=== PATIENT | male | born 1950 | race Caucasian/White ===

== ENCOUNTER 2019-12-14 11:12 | Inpatient (IN) ==
--- NOTE | 2019-12-14 11:28 | Emergency Department Note ---
ED Disposition Clinical Impression: Small bowel obstruction, Intractable nausea and vomiting, Medically noncompliant, Dehydration Abdominal pain Qualifiers: Abdominal location: lower abdomen, unspecified Qualified Code(s): R10.30 - Lower abdominal pain, unspecified Hyperglycemia due to type 2 diabetes mellitus Qualifiers: Diabetes mellitus shelter insulin use: without shelter use Qualified Code(s ): E11.65 - Type 2 diabetes mellitus with hyperglycemia Disposition: Admitted As Inpatient Condition on Discharge: Fair Time of Disposition: 13:12 - Critical Care Critical Care Time: Yes Attestation: On , the high probability of a clinically significant, sudden or life threatening deterioration of the following system(s) required my full and direct attention, intervention and personal management. The time I documented below is in addition to time spent performing reported procedures but includes the following listed in this critical care notation. Total Critical Care Time: 30 Vital system(s) involved:: Metabolic Failure My critical care processes included: Assessment & monitoring of V/S, Initial and Re-exams, Data Review/Interpretation, Coordinating Care, Medication Orders and management, Documentation Medical Decision Making - [place] Inquiry Pt receiving controlled substance: No Vital Signs: 12/14/19 11:12 12/14/19 11:36 12/14/19 12:12 Temperature 98.0 F Temperature Source Oral Pulse Rate [Right Radial] 77 72 74 Respiratory Rate 17 16 15 Blood Pressure [Right Arm] 159/110 H 107/55 L 156/90 H Blood Pressure Mean [Right Arm] 126 72 112 Blood Pressure Source [Right Arm] Automatic Cuff Blood Pressure Position [Right Arm] Sitting Sitting 02 Sat by Pulse Oximetry 97 96 96 Oxygen Delivery Method Room Air Room Air Room Air - Lab Data Lab results reviewed: Yes: I reviewed the patient's lab results. Lab Results 12/14/19 11:10: WBC 19.7 H, RBC 5.83, Hgb 17.7, Hct 52.4 H, MCV 89.9, MCH 30.4, MCHC 33.8, RDW 12.6, Plt Count 312, MPV 8.9, Neut % (Auto) 92.3 H, Lymph % (Auto) 4.6 L, [place] % (Auto) 2.9, Eos % (Auto) 0.0 L, Baso % (Auto) 0.2, Neut # (Auto) 18.2 H, Lymph # (Auto) 0.9, [place] # (Auto) 0.6, Eos # (Auto) 0.0, Baso # (Auto) 0.0, Total Counted 100, Neutrophils % (Manual) 89 H, Lymphocytes % (Manual) 6 L, Monocytes % (Manual) 5, Platelet Estimate Normal, RBC Morphology Normal 12/14/19 11:10: Sodium 135 L, Potassium 4.4, Chloride 88 L, Carbon Dioxide 31 H, Anion Gap 20.4 H, BUN 16, Creatinine 0.80, Estimated Creat Clear 84, Estimated GFR 96, Est GFR ( Amer) 116, Glucose 419 H*, Calcium 10.9 H, Total Bilirubin 0.7, AST 26, ALT 23, Alkaline Phosphatase 106, Total Protein 8.7 H, A lbumin 5.1 H, Globulin 3.6 H, Albumin/Globulin Ratio 1.4, Amylase 33, Lipase 28, Acetone Level None detected 12/14/19 11:50: Lactate 1.9 12/14/19 11:50: Influenza Type A Ag Negative, Influenza Type B Ag Negative 12/14/19 11:51: Specimen Source L. radial, O2 % Room air, ABG pH 7.40, ABG pCO2 36.6, ABG pO2 76.3 L, ABG HCO3 22.0, ABG Total CO2 23.1, ABG O2 Saturation 95, ABG Base Excess -2.9 L, Jim Test Acceptable 12/14/19 12:35: Urine Color Yellow, Urine Appearance Clear, Urine pH 6.0, Ur Specific [place] 1.010, Urine Protein Negative, Urine Glucose (UA) 3+, Urine Ketones 1+, Urine Blood Negative, Urine Nitrate Negative, Urine Bilirubin Negative, Urine Urobilinogen 0.2, Ur Leukocyte Esterase Negative, Urine RBC Occasional, Urine WBC 5-10, Ur Squamous Epith Cells 5-10, Urine Bacteria Trace 12/14/19 13:06: POC Glucose 276 H Result diagrams: 12/14/19 11:10 12/14/19 11:10 Orders (Tests/Meds): ED MEDICATIONS Discontinued Medications Generic Name Dose Route Start Last Admin Trade Name Freq PRN Reason Stop Dose Admin Sodium Chloride 1,000 mls @ 999 mls/hr 12/14/19 11:30 12/14/19 11:54 Sod Chlor 0.9% 1000ml Bag IV 12/14/19 12:30 999 mls/hr .Q1H1M FELISA Administration Ampicillin Sodium/Sulbactam 100 mls @ 200 mls/hr 12/14/19 11:45 12/14/19 11:54 Sodium 3 gm/ Sodium Chloride IV 12/14/19 11:46 200 mls/hr ONCE ONE Administration Protocol Insulin Human Regular 10 unit 12/14/19 11:54 12/14/19 11:56 Humulin R Insulin 100 Units/Ml 10ml Vial IVP 12/14/19 11:55 10 unit ONCE ONE Administration Ioversol 75 ml 12/14/19 12:10 12/14/19 12:11 Rad-Optiray 350 100ml Vial IV 12/14/19 12:11 75 ml ONCE ONE Administration Protocol Morphine Sulfate 4 mg 12/14/19 11:31 12/14/19 11:37 Morphine 4mg/Ml Syringe IV 12/14/19 11:32 4 mg ONCE ONE Administration Morphine Sulfate 4 mg 12/14/19 13:18 12/14/19 13:19 Morphine 4mg/Ml Syringe IV 12/14/19 13:19 4 mg ONCE ONE Administration Ondansetron HCl 4 mg 12/14/19 11:30 12/14/19 11:37 Zofran 4mg/2ml Vial IV 12/14/19 11:31 4 mg ONCE ONE Administration Sodium Chloride 10 ml 12/14/19 12:10 12/14/19 12:11 Rad-Saline Flush 10ml Syringe IV 12/14/19 12:11 10 ml ONCE ONE Administration ORDERS Category Date Time Status Blood Culture Stat Micro 12/14/19 11:50 Received - CT Data CT Scan: Abdomen Time Received: 13:[address] Reviewed: Yes: I discussed the CT results w/the radiologist Findings Narrative: Discussed the CT scan finding with the radiologist, Dr. Mickey Nuñez, and he advised that the patient does have small bowel obstruction moderate type with small bowel diameter of about 3 cm. The transition point is at right lower quadrant. His prostate is enlarged. He does have few hepatic cysts. CT ABDOMEN PELVIS W CON CLINICAL INDICATION: abd pain, vomiting Lower abdominal pain with nausea and vomiting COMPARISON: No exams were available for comparison TECHNIQUE: IV Contrast: 75ML OPTIRAY 350 Oral Contrast none Axial images obtained with sagittal and coronal reformats. All CT scans at the facility use one or more dose reduction, viz: automated exposure control, ma/kV adjustment per patient size (including targeted exams where dose is matched to indication, i.e. head), or iterative reconstruction technique. FINDINGS: LOWER THORAX: There are dependent changes in the lung bases. ABDOMEN & PELVIS: There are several hypodense lesions of the liver the 2 largest in the hepatic dome 1 on the right and 1 on the left each measuring approximately 15 mm consistent with hepatic cysts. There is a gallstone present. The spleen, adrenal glands, and pancreas have an unremarkable appearance. Nonobstructing 3 mm stone is present in the mid polar region of the left kidney. There is a small cortical cyst involving the upper pole and lower pole of the right kidney. No hydronephrosis. No ureteral calculi. There is moderate amount of retained food products and fluid and/or secretions within the stomach There are distended small bowel loops with air-fluid levels with a transition point in the right lower quadrant consistent with small bowel obstruction. Small bowel loops are up to 3 cm in with. No free air is evident. There has been a prior appendectomy with clips at the cecal region. There is diverticulosis of the descending colon and sigmoid colon but no evidence of diverticulitis. There are small bilateral inguinal hernias which contain fat. There is some thickening of the right inguinal ring which could be post surgical in nature. Please correlate clinical findings. The prostate is enlarged at 5.6 cm with some central coarse calcification. IMPRESSION: 1. Moderate grade small bowel obstruction with transition point in the right lower quadrant at the mid to distal ileal region 2. Nonobstructing left nephrolithiasis. 3. Colonic diverticulosis 4. Other nonacute findings as described above. Dictated by: Jim Nuñez MD 12/14/2019 12:56 Electronically signed by Jim Nuñez MD in [place] 12/14/2019 12:56 - Physician Consults Physician Consulted: Dr. Guerra Time: 13:02 Reason -: Admission, Pt condition Comment/Response: Discussed with Dr. Guerra, the surgical surgery on-call regarding the patient and he advised to get the patient admitted to the on-call medical attending. He wants us to get the patient an NG tube for intermittent wall suctioning and hydrate the patient with IV fluids. He will follow-up with the patient today. Additional Consult: Dr. Mendez Time: 13:05 Reason -: Admission, Pt condition Comment/Response: Discussed with Dr. Mendez regarding the patient and plan to get the patient admitted to the floor under his service. - Reevaluation(s) Time: 12:00 Reevaluation #1: Patient has been stable throughout the course of stay in the emergency department. Time: 13:05 Reevaluation #2: Patient has been stable throughout the course of stay in the emergency department. Discussed the lab findings and the CT scan finding with the patient. Planned to admit the patient to the floor under the medicine service. Nausea/Vomiting/Diarrhea HPI - General Chief complaint: Nausea/Vomiting/Diarrhea Stated complaint: vomiting Time Seen by Provider: 12/14/19 11:19 Mode of Arrival: EMS Limitations: No Limitations Description of Symptoms (Recalled from ER Triage Doc. by RN): pt presents to ed with co vomiting since 629 this morning. pt states his stomach is "sore" - History of Present Illness HPI Narrative: 69-year-old male was brought in by the EMS for having abdominal pain and discomfort along with nausea and vomiting since early this morning. He states he started getting sick since about 6 AM this morning he has vomited multiple times since then. Denies having any blood in the vomitus. Denies having any fever or chills. He states she hurts on the lower part of the abdomen including both the lower quadrants and the suprapubic area. The pain is 9 out of 10. It is sharp in nature. There is no radiation of the pain. Pain is worse with movement and palpation of the abdomen. He has history of appendectomy done in the past. Also has history of hernia in the past. Has history of hernia surgery done. Patient denies having been in contact with anybody with coronavirus infection or recent traveling to outside countries affected with coronavirus. MD complaint: nausea, vomiting, abdominal pain Onset (ago): hour(s) (5) Description of Vomiting: food contents, watery, bilious Associated Abdominal Pain: Yes Location of pain: LLQ, RLQ, other (Suprapubic pain) Severity: severe Severity scale (1-10): 9 Quality: sharp Consistency: colicky Relieving factors: none Exacerbating factors: none - Related Data Home Medications Medication Instructions Recorded Confirmed No Known Home Medications 12/14/19 12/14/19 Allergies Allergy/AdvReac Type Severity Reaction Status Date / Time No Known Allergies Allergy Verified 12/14/19 11:16 [facility] History - Hepatitis A Screen Drug use history?: No High risk sexual behaviors?: No History of sexually transmitted infection?: No Currently employed?: No Childcare worker?: No Do you have indoor plumbing?: Yes Do you have electricity?: Yes Attestation statement:: This patient has been screened for Hepatitis A risk factors. I have reviewed the patient's past medical history: Yes Medical History: Reports:: Diabetes Mellitus Type 2 Denies:: Diabetes Mellitus Type 1 - Social History Smoking Status: Former smoker Alcohol Intake: never Occupational Status: employed ROS Obtained: Yes All systems reviewed & no additional complaints Physical Exam - General General appearance: alert, in no apparent distress, lethargic, other (Patient is constantly retching and having mucus vomitus in small amounts. No blood in the vomitus) - Head Head exam: atraumatic, normocephalic, normal inspection - Eye Eye exam: Present: normal appearance, PERRL, EOMI - ENT ENT exam: Present: normal exam, normal oropharynx, mucous membranes moist, normal external ear exam - Neck Neck exam: Present: normal inspection, full ROM, trachea midline - Chest Chest inspection: Present: normal inspection, symmetric chest wall rise. Absent: tenderness - Respiratory Respiratory exam: Present: normal lung sounds bilaterally. Absent: respiratory distress - Cardiovascular Cardiovascular exam: Present: regular rate, normal rhythm. Absent: JVD - Abdominal Exam Abdominal exam: Present: soft, tenderness (Severe tenderness on the lower part of the abdomen.), guarding, rebound (Rebound tenderness positive on lower part of the abdomen.), normal bowel sounds - Extremities Exam Extremities exam: Present: normal inspection, full ROM, normal capillary refill. Absent: calf tenderness - Back Exam Back exam: Present: normal inspection, full ROM. Absent: tenderness - Neurological Exam Neurological exam: Present: alert, oriented X3, CN II-XII intact - Psychiatric Psychiatric exam: Present: normal affect, normal mood
[2019-12-14 11:34] LABS: Basophils % 0.2 % (0.1-2.0); Hematocrit 52.4 % (42.0-52.0); Hemoglobin 17.7 g/dL (14.1-18.0); Lymphocytes # 0.9 K/mm3 (0.7-4.5); Lymphocytes % 4.6 % (10-50); Mean Corpuscular HGB Conc 33.8 g/dL (31.8-35.4); Mean Corpuscular Volume 89.9 fl (80-94); Mean Platelet Volume 8.9 fl (7.4-10.4); Monocytes # 0.6 K/mm3 (0.1-1.0); Monocytes % 2.9 % (1.7-9.3); Neutrophils # 18.2 K/mm3 (1.8-7.8); Neutrophils % 92.3 % (37.0-80.0); Platelet Count 312 K/mm3 (142-424); Red Blood Count 5.83 M/mm3 (4.60-6.20); Red Cell Distribution Width 12.6 % (11.5-17.5); White Blood Count 19.7 K/mm3 (4.8-10.8)
[2019-12-14 11:44] LABS: Chloride 88 mmol/L (98-107); Sodium 135 mmol/L (136-145)
[2019-12-14 11:47] LABS: Alanine Aminotransferase 23 U/L (12-78); Alkaline Phosphatase 106 U/L (38-126); Amylase 33 U/L (30-110); Anion Gap 20.4 mEq/L (5-15); Aspartate Amino Transferase 26 U/L (17-59); Bilirubin,Total 0.7 mg/dl (0.2-1.3); Blood Urea Nitrogen 16 mg/dl (9-20); Calcium 10.9 mg/dl (8.4-10.2); Carbon Dioxide 31 mmol/L (22.0-30.0)
[2019-12-14 11:48] LABS: Albumin Level 5.1 g/dl (3.5-5.0); Albumin/Globulin Ratio 1.4 (1.1-1.8); Globulin 3.6 g/dL (1.3-3.2); Total Protein,Serum 8.7 g/dl (6.3-8.2)
[2019-12-14 11:50] LABS: Acetone, Serum (Rapid) None Detected (None Detect); Glucose 419 mg/dl (74-100)
[2019-12-14 11:57] LABS: Lymphocytes % 6 % (10-50); Monocytes % 5 % (2-9); Neutrophils % 89 % (42-76); Total Cells Counted 100
[2019-12-14 11:58] LABS: RBC Morphology Normal
[2019-12-14 12:32] LABS: ABG Base Excess -2.9 mmol/L (-2.4-2.3); ABG Oxygen Saturation 95 % (90-100); ABG PCO2 36.6 mmhg (35.0-45.0); ABG PO2 76.3 mmhg (80-100); ABG TCO2 23.1 mmhg (23-27)
[2019-12-14 12:33] LABS: Oxygen ROOM AIR %
[2019-12-14 12:34] LABS: Allen's Test ACCEPTABLE
[2019-12-14 12:41] LABS: Microscopic, Urine URINE MICROSCOPIC (MICROSCOPIC)
[2019-12-14 12:49] LABS: Appearance,Urine CLEAR (Clear); Bilirubin,Urine Negative (Negative); Blood, Urine Negative (Negative); Color,Urine YELLOW (Yellow); Glucose,Urine (UA) 3+ (Negative); Ketones,Urine 1+ (Negative); Leukocyte Esterase,Urine Negative (Negative); Protein,Urine Negative (Negative); Urobilinogen,Urine 0.2 EU/dl (0.2)
[2019-12-14 12:59] LABS: Bacteria,Urine Trace /lpf; RBC,Urine Occasional #/hpf (0-3)
--- NOTE | 2019-12-14 13:41 | Pharmacy Consult Notes ---
[facility] Pharmacy VTE Monitoring - Patient Demographics Admission date: 12/14/19 Report Date: 12/14/19 Time: 13:41 Allergies/Adverse Reactions: Patient Allergies No Known Allergies Allergy (Verified 12/14/19 11:16) Height: 1.8 m Weight: 83.915 kg Patient Problems: Current Active Problems Abdominal pain (Acute) Small bowel obstruction (Acute) Intractable nausea and vomiting (Acute) Hyperglycemia due to type 2 diabetes mellitus (Acute) Medically noncompliant (Acute) Dehydration (Acute) - VTE Risk Labs: VTE Related Lab Results Hgb 17.7 g/dL (14.1-18.0) 12/14/19 11:10 Hct 52.4 % (42.0-52.0) H 12/14/19 11:10 Plt Count 312 K/mm3 (142-424) 12/14/19 11:10 BUN 16 mg/dl (9-20) 12/14/19 11:10 Creatinine 0.80 mg/dl (0.66-1.25) 12/14/19 11:10 Estimated Creat Clear 84 mL/min (50-200) 12/14/19 11:10 - Prophylaxis VTE Prophylaxis Ordered?: Yes Types of VTE Prophylaxis: TEDS Knee High Location of Applied Device: Bilateral Lower Extremeties - VTE Diagnosis Confirmed Treatment or plan recommended: Continue Current Treatment
--- NOTE | 2019-12-14 14:15 | Consult Report ---
*Admission Date: 12/14/19 *Reason for consult:: Bowel obstruction *History of present illness: Patient is a 69-year-old white male. He recently moved to [place] from [facility]. He has no regular physician but reportedly has a diagnosis of diabetes which has not been treated. He had undergone open appendectomy he states approximately 8 or 10 years ago. He was in his usual state of health until this morning at which time he developed bilateral lower quadrant abdominal pain and nausea and vomiting. He has never had previous similar symptoms. He presented to the emergency department here at [facility] where he was seen and evaluated. He was found to have a blood glucose of 418. He had a mild leukocytosis of 19,000. He had CT scan performed with intravenous contrast which reveals findings of mild to moderate small bowel distention filled with fluid measuring up to approximately 3 cm with possible transition point in the right lower quadrant. Patient does state that he had a bowel movement this morning. Review of Systems - Review of Systems Review of systems:: pertinent systems reviewed and negative unless documented below [facility] History Medical History: Reports:: Diabetes Mellitus Type 2 Denies:: Diabetes Mellitus Type 1 *Have you ever received a pneumonia vaccine?: No *Have you received a flu vaccine this season?: No - *Social History Smoking Status: Former smoker Alcohol Intake: never *Occupational Status:: employed *Travel in the last 8 weeks: None Family Hx:: No significant family history Meds Home Medications Medication Instructions Recorded Confirmed Type No Known Home Medications 12/14/19 12/14/19 History Allergies Allergy/AdvReac Type Severity Reaction Status Date / Time No Known Allergies Allergy Verified 12/14/19 11:16 Exam Vital signs and Labs for Last 24 Hours: Temp Pulse Resp BP Pulse Ox 98.1 F 71 15 154/89 H 96 12/14/19 13:55 12/14/19 13:55 12/14/19 13:55 12/14/19 13:55 12/14/19 13:30 Laboratory Results - last 24 hr 12/14/19 11:10: WBC 19.7 H, RBC 5.83, Hgb 17.7, Hct 52.4 H, MCV 89.9, MCH 30.4, MCHC 33.8, RDW 12.6, Plt Count 312, MPV 8.9, Neut % (Auto) 92.3 H, Lymph % (Auto) 4.6 L, [place] % (Auto) 2.9, Eos % (Auto) 0.0 L, Baso % (Auto) 0.2, Neut # (Auto) 18.2 H, Lymph # (Auto) 0.9, [place] # (Auto) 0.6, Eos # (Auto) 0.0, Baso # (Auto) 0.0, Total Counted 100, Neutrophils % (Manual) 89 H, Lymphocytes % (Manual) 6 L, Monocytes % (Manual) 5, Platelet Estimate Normal, RBC Morphology Normal 12/14/19 11:10: Sodium 135 L, Potassium 4.4, Chloride 88 L, Carbon Dioxide 31 H, Anion Gap 20.4 H, BUN 16, Creatinine 0.80, Estimated Creat Clear 84, Estimated GFR 96, Est GFR ( Amer) 116, Glucose 419 H*, Calcium 10.9 H, Total Bilir ubin 0.7, AST 26, ALT 23, Alkaline Phosphatase 106, Total Protein 8.7 H, Albumin 5.1 H, Globulin 3.6 H, Albumin/Globulin Ratio 1.4, Amylase 33, Lipase 28, Acetone Level None detected 12/14/19 11:50: Lactate 1.9 12/14/19 11:50: Influenza Type A Ag Negative, Influenza Type B Ag Negative 12/14/19 11:51: Specimen Source L. radial, O2 % Room air, ABG pH 7.40, ABG pCO2 36.6, ABG pO2 76.3 L, ABG HCO3 22.0, ABG Total CO2 23.1, ABG O2 Saturation 95, ABG Base Excess -2.9 L, Jim Test Acceptable 12/14/19 12:35: Urine Color Yellow, Urine Appearance Clear, Urine pH 6.0, Ur Specific [place] 1.010, Urine Protein Negative, Urine Glucose (UA) 3+, Urine Ketones 1+, Urine Blood Negative, Urine Nitrate Negative, Urine Bilirubin Negative, Urine Urobilinogen 0.2, Ur Leukocyte Esterase Negative, Urine RBC Occasional, Urine WBC 5-10, Ur Squamous Epith Cells 5-10, Urine Bacteria Trace 12/14/19 13:06: POC Glucose 276 H I & O for Last 24 hours: Intake & Output 12/12/19 12/13/19 12/14/19 12/15/19 11:59 11:59 11:59 11:59 Weight 185 lb - *Routine HEENT Exam Head: Present: normocephalic Eye: Present: EOMI, PERRL ENT: Present: mucous membranes moist - *Routine Neck Exam Present: supple. Absent: lymphadenopathy - *Routine Respiratory Exam Present: CTA bilaterally - *Routine Cardiovascular Exam Present: RRR - *Routine Abdominal Exam Present: soft, normoactive bowel sounds, tenderness Comments: On examination his abdomen is slightly distended but soft. He does have some tenderness in the left upper quadrant with voluntary guarding without rebound. Mild tenderness in the bilateral lower quadrants. Large right lower quadrant scar. - *Routine Extremities Exam Absent: cyanosis, clubbing, edema - *Routine Skin Exam Present: warm. Absent: rash - *Routine Neurological Exam Present: alert, oriented X3 Results - Labs 12/14/19 11:10 12/14/19 11:10 Laboratory Results - last 24 hr 12/14/19 11:10: WBC 19.7 H, RBC 5.83, Hgb 17.7, Hct 52.4 H, MCV 89.9, MCH 30.4, MCHC 33.8, RDW 12.6, Plt Count 312, MPV 8.9, Neut % (Auto) 92.3 H, Lymph % (Auto) 4.6 L, [place] % (Auto) 2.9, Eos % (Auto) 0.0 L, Baso % (Auto) 0.2, Neut # (Auto) 18.2 H, Lymph # (Auto) 0.9, [place] # (Auto) 0.6, Eos # (Auto) 0.0, Baso # (Auto) 0.0, Total Counted 100, Neutrophils % (Manual) 89 H, Lymphocytes % (M anual) 6 L, Monocytes % (Manual) 5, Platelet Estimate Normal, RBC Morphology Normal 12/14/19 11:10: Sodium 135 L, Potassium 4.4, Chloride 88 L, Carbon Dioxide 31 H, Anion Gap 20.4 H, BUN 16, Creatinine 0.80, Estimated Creat Clear 84, Estimated GFR 96, Est GFR ( Amer) 116, Glucose 419 H*, Calcium 10.9 H, Total Bilirubin 0.7, AST 26, ALT 23, Alkaline Phosphatase 106, Total Protein 8.7 H, Albumin 5.1 H, Globulin 3.6 H, Albumin/Globulin Ratio 1.4, Amylase 33, Lipase 28, Acetone Level None detected 12/14/19 11:50: Lactate 1.9 12/14/19 11:50: Influenza Type A Ag Negative, Influenza Type B Ag Negative 12/14/19 11:51: Specimen Source L. radial, O2 % Room air, ABG pH 7.40, ABG pCO2 36.6, ABG pO2 76.3 L, ABG HCO3 22.0, ABG Total CO2 23.1, ABG O2 Saturation 95, ABG Base Excess -2.9 L, Jim Test Acceptable 12/14/19 12:35: Urine Color Yellow, Urine Appearance Clear, Urine pH 6.0, Ur Specific [place] 1.010, Urine Protein Negative, Urine Glucose (UA) 3+, Urine Ketones 1+, Urine Blood Negative, Urine Nitrate Negative, Urine Bilirubin Negative, Urine Urobilinogen 0.2, Ur Leukocyte Esterase Negative, Urine RBC Occasional, Urine WBC 5-10, Ur Squamous Epith Cells 5-10, Urine Bacteria Trace 12/14/19 13:06: POC Glucose 276 H Assessment and Plan - Assessment and plan all Dx Assessment and Plan for all problems:: After placement of nasogastric tube he has had an appreciable amount of output. Plan to attempt nonoperative management of partial mechanical bowel obstruction with bowel rest, hydration, nasogastric decompression. I did inform the patient if his symptoms remain refractory to nonoperative management or worsen he could require surgical intervention.
--- NOTE | 2019-12-14 15:11 | History & Physical Report ---
*Admission Date: 12/14/19 *Chief complaint: abdominal pain, vomiting *History of present illness: This 69-year-old white male presented in the emergency room with abdominal pain and vomiting. He was found to have evidence of a small bowel obstruction with the transition point in the right lower quadrant. He has a history of appendectomy and history of left inguinal herniorrhaphy. The patient's illness began this morning about 10:30 AM after he got off work at [employer]. 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 He had rather acute onset of abdominal pain and was vomiting large amounts of material. The patient has a history of diabetes mellitus type 2 which started 10 or 12 years ago he states. He is not been on medications for about 4 years. He recently moved here from [facility]. A nasogastric tube was placed in the emergency room. The patient has been seen by Dr. Guerra. See his consultation note. [facility] History Medical History: Reports:: Diabetes Mellitus Type 2 Denies:: Diabetes Mellitus Type 1 *Have you ever received a pneumonia vaccine?: No *Have you received a flu vaccine this season?: No Laterality Cases: Left: Arthroscopy Shoulder Other Surgeries: Yes: Appendectomy, Hernia Repair (Left side.) - *Social History Smoking Status: Former smoker (4 packs/day. Has not smoked in 20 years.) Tobacco Type: smokeless tobacco # Packs/Day (cigarettes): 4 Alcohol Intake: never *Occupational Status:: employed (Maintenance at [employer]) Housing: apartment *Travel in the last 8 weeks: None Family Hx:: Diabetes, Hypertension Comment: Patient's father of pneumonia, he has 3 brothers, his son has hypertension and diabetes. Review of Systems - Constitutional Denies body ache(s), Denies chills - *Cardiovascular Denies chest pain, Denies shortness of breath - *Gastrointestinal Reports abdominal pain, Reports nausea, Reports vomiting, Denies change in bowel habits, Denies black, tarry stools - *Genitourinary Denies difficulty urinating - *Neurologic Denies confusion, Denies dizziness, Denies localized weakness - Allergic/Immunologic Denies GI upset with certain foods Meds Home Medications Medication Instructions Recorded Confirmed Type No Known Home Medications 12/14/19 12/14/19 History Allergies Allergy/AdvReac Type Severity Reaction Status Date / Time No Known Allergies Allergy Verified 12/14/19 14:29 Exam Vital signs and Labs for Last 24 Hours: Temp Pulse Resp BP Pulse Ox 98.4 F 73 18 169/93 H 96 12/14/19 14:11 12/14/19 14:11 12/14/19 14:11 12/14/19 14:11 12/14/19 14:11 Laboratory Results - last 24 hr 12/14/19 11:10: WBC 19.7 H, RBC 5.83, Hgb 17.7, Hct 52.4 H, MCV 89.9, MCH 30.4, MCHC 33.8, RDW 12.6, Plt Count 312, MPV 8.9, Neut % (Auto) 92.3 H, Lymph % (Auto) 4.6 L, [place] % (Auto) 2.9, Eos % (Auto) 0.0 L, Baso % (Auto) 0.2, Neut # (Auto) 18.2 H, Lymph # (Auto) 0.9, [place] # (Auto) 0.6, Eos # (Auto) 0.0, Baso # (Auto) 0.0, Total Counted 100, Neutrophils % (Manual) 89 H, Lymphocytes % (Manual) 6 L, Monocytes % (Manual) 5, Platelet Estimate Normal, RBC Morphology Normal 12/14/19 11:10: Sodium 135 L, Potassium 4.4, Chloride 88 L, Carbon Dioxide 31 H, Anion Gap 20.4 H, BUN 16, Creatinine 0.80, Estimated Creat Clear 84, Estimated GFR 96, Est GFR ( Amer) 116, Glucose 419 H*, Calcium 10.9 H, Total Bilirubin 0.7, AST 26, ALT 23, Alkaline Phosphatase 106, Total Protein 8.7 H, Albumin 5.1 H, Globulin 3.6 H, Albumin/Globulin Ratio 1.4, Amylase 33, Lipase 28, Acetone Level None detected 12/14/19 11:10: Troponin I < 0.01 12/14/19 11:50: Lactate 1.9 12/14/19 11:50: Influenza Type A Ag Negative, Influenza Type B Ag Negative 12/14/19 11:51: Specimen Source L. radial, O2 % Room air, ABG pH 7.40, ABG pCO2 36.6, ABG pO2 76.3 L, ABG HCO3 22.0, ABG Total CO2 23.1, ABG O2 Saturation 95, ABG Base Excess -2.9 L, Jim Test Acceptable 12/14/19 12:35: Urine Color Yellow, Urine Appearance Clear, Urine pH 6.0, Ur Specific [place] 1.010, Urine Protein Negative, Urine Glucose (UA) 3+, Urine Ketones 1+, Urine Blood Negative, Urine Nitrate Negative, Urine Bilirubin Negative, Urine Urobilinogen 0.2, Ur Leukocyte Esterase Negative, Urine RBC Occasional, Urine WBC 5-10, Ur Squamous Epith Cells 5-10, Urine Bacteria Trace 12/14/19 13:06: POC Glucose 276 H I & O for Last 24 hours: Intake & Output 12/12/19 12/13/19 12/14/19 12/15/19 11:59 11:59 11:59 11:59 Weight 185 lb 160 lb 4 oz Radiology Reports for the Last 24 Hours: 1. Moderate grade small bowel obstruction with transition point in the right lower quadrant at the mid to distal ileal region 2. Nonobstructing left nephrolithiasis. 3. Colonic diverticulosis 4. Other nonacute findings as described above. - Constitutional severe distress - *Routine HEENT Exam Head: Present: normocephalic Eye: Present: PERRL ENT: Present: mucous membranes moist - *Routine Neck Exam Absent: carotid bruit - Routine Chest/Breast/Axilla Exam Chest wall: Absent: tenderness - *Routine Respiratory Exam Present: rales (Some rales at the bases.) - *Routine Cardiovascular Exam Present: RRR - *Routine Abdominal Exam Present: tenderness, distended, surgical scars. Absent: organomegaly, hernia - *Routine Exam Groin: Present: inguinal hernia (Scar left groin) Comments: Large appendectomy scar in the right lower quadrant - *Routine Extremities Exam Absent: edema - *Routine Neurological Exam Present: alert, oriented X3 - Routine Psychiatric Exam Present: normal affect (He is uncomfortable.) Assessment and Plan (1) Abdominal pain Current visit: Yes Status: Acute Qualifiers: Abdominal location: lower abdomen, unspecified Qualified Code(s): R10.30 - Lower abdominal pain, unspecified Category: Medical Code(s): R10.9 - Unspecified abdominal pain (2) Dehydration Current visit: Yes Status: Acute Category: Medical Code(s): E86.0 - Dehydration (3) Hyperglycemia due to type 2 diabetes mellitus Current visit: Yes Status: Acute Qualifiers: Diabetes mellitus intermediate designer insulin use: without intermediate designer use Qualified Code(s): E11.65 - Type 2 diabetes mellitus with hyperglycemia Category: Medical Code(s): E11.65 - Type 2 diabetes mellitus with hyperglycemia (4) Intractable nausea and vomiting Current visit: Yes Status: Acute Category: Medical Code(s): R11.2 - Nausea with vomiting, unspecified (5) Medically noncompliant Current visit: Yes Status: Acute Category: Medical Code(s): Z91.19 - Patient's noncompliance with other medical treatment and regimen (6) Small bowel obstruction Current visit: Yes Status: Acute Category: Medical Code(s): K56.609 - Unspecified intestinal obstruction, unspecified as to partial versus complete obstruction - Assessment and plan all Dx Assessment and Plan for all problems:: The patient has been seen by Dr. Guerra. The plan is to decompress with the NG tube and see if the obstruction responds. Otherwise he will be a surgical candidate. The diabetes will be addressed with a sliding scale and with some long-acting insulin.
[2019-12-15 07:04] LABS: Basophils % 0.3 % (0.1-2.0); Eosinophils # 0.1 K/mm3 (0.0-0.4); Eosinophils % 0.4 % (0.1-12.0); Hematocrit 49.9 % (42.0-52.0); Hemoglobin 16.5 g/dL (14.1-18.0); Lymphocytes % 7.2 % (10-50); Mean Corpuscular HGB Conc 33.1 g/dL (31.8-35.4); Mean Corpuscular Volume 89.7 fl (80-94); Mean Platelet Volume 8.3 fl (7.4-10.4); Monocytes # 0.8 K/mm3 (0.1-1.0); Neutrophils % 86.1 % (37.0-80.0); Platelet Count 251 K/mm3 (142-424); Red Blood Count 5.57 M/mm3 (4.60-6.20); Red Cell Distribution Width 12.7 % (11.5-17.5); White Blood Count 13.9 K/mm3 (4.8-10.8)
[2019-12-15 07:14] LABS: Anion Gap 13.8 mEq/L (5-15)
[2019-12-15 07:39] LABS: Calcium 9.5 mg/dl (8.4-10.2)
--- NOTE | 2019-12-15 08:24 | Progress Note ---
Subjective Narrative: Patient states that he feels better. Taking ice chips. No flatus. Exam Vital signs and Labs for Last 24 Hours: Temp Pulse Resp BP Pulse Ox 97.5 F L 83 20 113/76 94 L 12/15/19 04:42 12/15/19 04:42 12/15/19 04:42 12/15/19 04:42 12/15/19 04:42 Laboratory Results - last 24 hr 12/14/19 11:10: WBC 19.7 H, RBC 5.83, Hgb 17.7, Hct 52.4 H, MCV 89.9, MCH 30.4, MCHC 33.8, RDW 12.6, Plt Count 312, MPV 8.9, Neut % (Auto) 92.3 H, Lymph % (Auto) 4.6 L, [place] % (Auto) 2.9, Eos % (Auto) 0.0 L, Baso % (Auto) 0.2, Neut # (Auto) 18.2 H, Lymph # (Auto) 0.9, [place] # (Auto) 0.6, Eos # (Auto) 0.0, Baso # (Auto) 0.0, Total Counted 100, Neutrophils % (Manual) 89 H, Lymphocytes % (Manua l) 6 L, Monocytes % (Manual) 5, Platelet Estimate Normal, RBC Morphology Normal 12/14/19 11:10: Sodium 135 L, Potassium 4.4, Chloride 88 L, Carbon Dioxide 31 H, Anion Gap 20.4 H, BUN 16, Creatinine 0.80, Estimated Creat Clear 84, Estimated GFR 96, Est GFR ( Amer) 116, Glucose 419 H*, Calcium 10.9 H, Total Bilirubin 0.7, AST 26, ALT 23, Alkaline Phosphatase 106, Total Protein 8.7 H, Albumin 5.1 H, Globulin 3.6 H, Albumin/Globulin Ratio 1.4, Amylase 33, Lipase 28, Acetone Level None detected 12/14/19 11:10: Troponin I < 0.01 12/14/19 11:10: Hemoglobin A1c 8.7 H 12/14/19 11:50: Lactate 1.9 12/14/19 11:50: Influenza Type A Ag Negative, Influenza Type B Ag Negative 12/14/19 11:51: Specimen Source L. radial, O2 % Room air, ABG pH 7.40, ABG pCO2 36.6, ABG pO2 76.3 L, ABG HCO3 22.0, ABG Total CO2 23.1, ABG O2 Saturation 95, ABG Base Excess -2.9 L, Jim Test Acceptable 12/14/19 12:35: Urine Color Yellow, Urine Appearance Clear, Urine pH 6.0, Ur Specific [place] 1.010, Urine Protein Negative, Urine Glucose (UA) 3+, Urine Ketones 1+, Urine Blood Negative, Urine Nitrate Negative, Urine Bilirubin Negative, Urine Urobilinogen 0.2, Ur Leukocyte Esterase Negative, Urine RBC Occ asional, Urine WBC 5-10, Ur Squamous Epith Cells 5-10, Urine Bacteria Trace 12/14/19 13:06: POC Glucose 276 H 12/14/19 15:30: POC Glucose 281 H 12/14/19 20:29: POC Glucose 221 H 12/15/19 05:53: POC Glucose 234 H 12/15/19 06:48: WBC 13.9 H D, RBC 5.57, Hgb 16.5, Hct 49.9, MCV 89.7, MCH 29.7, MCHC 33.1, RDW 12.7, Plt Count 251, MPV 8.3, Neut % (Auto) 86.1 H, Lymph % (Auto) 7.2 L, [place] % (Auto) 6.0, Eos % (Auto) 0.4, Baso % (Auto) 0.3, Neut # (Auto) 12.0 H, Lymph # (Auto) 1.0, [place] # (Auto) 0.8, Eos # (Auto) 0.1, Baso # (Auto) 0.0 12/15/19 06:48: Sodium 136, Potassium 3.8, Chloride 96 L, Carbon Dioxide 30, Anion Gap 13.8, BUN 21 H D, Creatinine 0.80, Estimated Creat Clear 74, Estimated GFR 96, Est GFR ( Amer) 116, Glucose 258 H D, Calcium 9.5 D I & O for Last 24 hours: Intake & Output 12/12/19 12/13/19 12/14/19 12/15/19 11:59 11:59 11:59 11:59 Intake Total 1862 / 1862 Output Total 2730 / 2730 Balance -868 / -868 Weight 185 lb 162 lb 9 oz - *Routine Abdominal Exam Present: soft, tenderness Comments: Abdomen is soft. Appreciable tenderness. Hypoactive bowel sounds. Progress Note: A&P (1) Abdominal pain Status: Acute Current Visit: Yes (2) Dehydration Status: Acute Current Visit: Yes (3) Hyperglycemia due to type 2 diabetes mellitus Status: Acute Current Visit: Yes (4) Intractable nausea and vomiting Status: Acute Current Visit: Yes (5) Medically noncompliant Status: Acute Current Visit: Yes (6) Small bowel obstruction Status: Acute Current Visit: Yes Assessment and Plan for All Diagnoses:: X-ray reveals minimal improvement. Abdominal exam tender. High NG output. May need laparotomy due to lack of significant improvement. Will review films with radiologist and reassess patient shortly.
[2019-12-15 08:58] LABS: Lymphocytes % 7 % (10-50); Monocytes % 5 % (2-9); Neutrophils % 88 % (42-76); Total Cells Counted 100
[2019-12-15 08:59] LABS: RBC Morphology Normal
--- NOTE | 2019-12-15 09:03 | Progress Note ---
Internal Medicine - PN: Subj *Date: 12/15/19 *Time: 09:00 Interval history: Patient has been seen by Dr. Guerra Who notes x-ray revealing minimal improvement. With exam abdomen was tender. Noted high GI output with comment that he may need laparotomy due to lack of significant improvement. Patient reported to Dr. Guerra that he been taking ice chips and passing flatus. Patient denies any chest pain and shortness of breath. He denies nausea and has not vomited around the tube. He continues to have cramping like abdominal pain. Bowels have not moved. Exam Vital signs and Labs for Last 24 Hours: Temp Pulse Resp BP Pulse Ox 98.5 F 73 28 H 106/78 L 93 L 12/15/19 08:00 12/15/19 08:00 12/15/19 08:00 12/15/19 08:00 12/15/19 08:00 Laboratory Results - last 24 hr 12/14/19 11:10: WBC 19.7 H, RBC 5.83, Hgb 17.7, Hct 52.4 H, MCV 89.9, MCH 30.4, MCHC 33.8, RDW 12.6, Plt Count 312, MPV 8.9, Neut % (Auto) 92.3 H, Lymph % (Auto) 4.6 L, [place] % (Auto) 2.9, Eos % (Auto) 0.0 L, Baso % (Auto) 0.2, Neut # (Auto) 18.2 H, Lymph # (Auto) 0.9, [place] # (Auto) 0.6, Eos # (Auto) 0.0, Baso # (Auto) 0.0, Total Counted 100, Neutrophils % (Manual) 89 H, Lymphocytes % (Manual) 6 L, Monocytes % (Manual) 5, Platelet Estimate Normal, RBC Morphology Normal 12/14/19 11:10: Sodium 135 L, Potassium 4.4, Chloride 88 L, Carbon Dioxide 31 H, Anion Gap 20.4 H, BUN 16, Creatinine 0.80, Estimated Creat Clear 84, Estimated GFR 96, Est GFR ( Amer) 116, Glucose 419 H*, Calcium 10.9 H, Total Bilirubin 0.7, AST 26, ALT 23, Alkaline Phosphatase 106, Total Protein 8.7 H, Albumin 5.1 H, Globulin 3.6 H, Albumin/Globulin Ratio 1.4, Amylase 33, Lipase 28, Acetone Level None detected 12/14/19 11:10: Troponin I < 0.01 12/14/19 11:10: Hemoglobin A1c 8.7 H 12/14/19 11:50: Lactate 1.9 12/14/19 11:50: Influenza Type A Ag Negative, Influenza Type B Ag Negative 12/14/19 11:51: Specimen Source L. radial, O2 % Room air, ABG pH 7.40, ABG pCO2 36.6, ABG pO2 76.3 L, ABG HCO3 22.0, ABG Total CO2 23.1, ABG O2 Saturation 95, ABG Base Excess -2.9 L, Jim Test Acceptable 12/14/19 12:35: Urine Color Yellow, Urine Appearance Clear, Urine pH 6.0, Ur Specific [place] 1.010, Urine Protein Negative, Urine Glucose (UA) 3+, Urine Ketones 1+, Urine Blood Negative, Urine Nitrate Negative, Urine Bilirubin Negative, Urine Urobilinogen 0.2, Ur Leukocyte Esterase Negative, Urine RBC Occasional, Urine WBC 5-10, Ur Squamous Epith Cells 5-10, Urine Bacteria Trace 12/14/19 13:06: POC Glucose 276 H 12/14/19 15:30: POC Glucose 281 H 12/14/19 20:29: POC Glucose 221 H 12/15/19 05:53: POC Glucose 234 H 12/15/19 06:48: WBC 13.9 H D, RBC 5.57, Hgb 16.5, Hct 49.9, MCV 89.7, MCH 29.7, MCHC 33.1, RDW 12.7, Plt Count 251, MPV 8.3, Neut % (Auto) 86.1 H, Lymph % (Auto) 7.2 L, [place] % (Auto) 6.0, Eos % (Auto) 0.4, Baso % (Auto) 0.3, Neut # (Auto) 12.0 H, Lymph # (Auto) 1.0, [place] # (Auto) 0.8, Eos # (Auto) 0.1, Baso # (Auto) 0.0, Total Counted 100, Neutrophils % (Manual) 88 H, Lymphocytes % (Manual) 7 L, Monocytes % (Manual) 5, Platelet Estimate Normal, RBC Morphology Normal 12/15/19 06:48: Sodium 136, Potassium 3.8, Chloride 96 L, Carbon Dioxide 30, Anion Gap 13.8, BUN 21 H D, Creatinine 0.80, Estimated Creat Clear 74, Estimated GFR 96, Est GFR ( Amer) 116, Glucose 258 H D, Calcium 9.5 D I & O for Last 24 hours: Intake & Output 12/12/19 12/13/19 12/14/19 12/15/19 11:59 11:59 11:59 11:59 Intake Total 2222 / 2222 Output Total 2730 / 2730 Balance -508 / -508 Weight 185 lb 162 lb 9 oz - Constitutional no acute distress Comments: Seems not to feel well. - *Routine Respiratory Exam Present: CTA bilaterally - *Routine Cardiovascular Exam Present: RRR - *Routine Abdominal Exam Present: soft, tenderness (Diffusely tender throughout.). Absent: normoactive bowel sounds (Diminished bowel sounds), distended - *Routine Extremities Exam Present: pulses intact. Absent: edema, calf tenderness - *Routine Neurological Exam Present: alert, oriented X3 Assessment and Plan (1) Abdominal pain Current visit: Yes Status: Acute Qualifiers: Abdominal location: lower abdomen, unspecified Qualified Code(s): R10.30 - Lower abdominal pain, unspecified Category: Medical Code(s): R10.9 - Unspecified abdominal pain (2) Dehydration Current visit: Yes Status: Acute Category: Medical Code(s): E86.0 - Dehydration (3) Hyperglycemia due to type 2 diabetes mellitus Current visit: Yes Status: Acute Qualifiers: Diabetes mellitus half-way insulin use: without exterminator helper use Qualified Code(s): E11.65 - Type 2 diabetes mellitus with hyperglycemia Category: Medical Code(s): E11.65 - Type 2 diabetes mellitus with hyperglycemia (4) Intractable nausea and vomiting Current visit: Yes Status: Acute Category: Medical Code(s): R11.2 - Nausea with vomiting, unspecified (5) Medically noncompliant Current visit: Yes Status: Acute Category: Medical Code(s): Z91.19 - Patient's noncompliance with other medical treatment and regimen (6) Small bowel obstruction Current visit: Yes Status: Acute Category: Medical Code(s): K56.609 - Unspecified intestinal obstruction, unspecified as to partial versus complete obstruction - Assessment and plan all Dx Assessment and Plan for all problems:: We will follow the direction of surgeon Dr. Guerra. Continue with NG tube and n.p.o. status.
--- NOTE | 2019-12-15 10:53 | Progress Note ---
[facility] Anesthesia Checklist - Patient Identification Patient Identification: Arm Band, Verbal (Name & ) - Structural Data Admitted From: Inpatient Planned Operative Procedure/s: laparotomy Consent for Planned Operative Procedure(s) Verified: Yes Verified Documents: History and Physical - NPO Status Verified Time NPO: 00:00 - Chart Verification Results Verified: CBC, BMP - Additional verifications Patient : No Anesthesia Reactions: No Hx Blood Transfusions: No Blood Transfusion Reaction: No Cephalosporin Allergy: No Previous Colonoscopy: No - Cardiovascular Assessment Heart Sounds: S1 & S2 Pulse Strength: Baseline Pulse Rhythm: Regular Peripheral Edema: No - Airway Assessment C-Spine Mobility Assessed: Yes TMJ Mobility Assessed: Yes Dentition: Good Dentition - Neurological Assessment Level of Consciousness: Awake, Alert, Appropriate Hx Seizures: No Numbness or tingling in extremities: No - Anesthesia Plan Anesthesia Risk discussed: Yes Anesthesia Plan: Verified ASA Class: III Anesthesia Type: General [facility] History I have reviewed the patient's past medical history: Yes Medical History: Reports:: Diabetes Mellitus Type 2 Denies:: Diabetes Mellitus Type 1 *Have you ever received a pneumonia vaccine?: No *Have you received a flu vaccine this season?: No Anesthesia experience/problems:: none Laterality Cases: Left: Arthroscopy Shoulder Other Surgeries: Yes: Appendectomy, Hernia Repair (Left side.) - *Social History Smoking Status: Former smoker (4 packs/day. 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
--- NOTE | 2019-12-15 12:31 | Operative Note ---
Date of procedure: 12/15/19 Pre-op Diagnosis:: Small bowel obstruction Post-op Diagnosis:: Same Procedure performed:: Exploratory laparotomy with lysis of adhesions and freeing of intestinal obstruction Surgeon:: Art Guerra MD Elastic Yarn Twister(s):: River Bey MD SPRING FITTER HELPER:: Kervin Schultzty Anesthesia: GETJoce Estimated blood loss (mL): 25 Clinical Note:: Patient is a 69-year-old male. He had recently relocated to the area from [facility]. He presented to the emergency department yesterday with several hour onset of severe abdominal pain followed by nausea and vomiting. Upon presentation to the emergency department imaging revealed findings consistent with a bowel obstruction. He was admitted for inpatient management. He had nasogastric tube placed and had appreciable output. Attempt was made at nonoperative management. Following morning he felt better but was having significant nasogastric aspirate. He had appreciable abdominal tenderness persistent. Radiographs revealed persistently dilated small bowel. Due to his lack of clinical improvement with ongoing evidence of complete bowel obstruction plan was made for laparotomy. Operative findings:: Patient had markedly dilated small bowel to the distal small bowel. Dilated small bowel was inflamed and erythematous. There were extensive adhesions in the right lower quadrant from previous open appendectomy creating small bowel obstruction with the terminal ileum completely decompressed. Operative note:: Patient was taken to the operating room. He was given preoperative intravenous antibiotics. In the operating room he was placed in a supine position. Castañeda catheter was placed for bladder decompression. He was given preoperative intravenous antibiotics. General anesthesia was induced. Abdomen was prepped and draped in the standard surgical fashion. Limited midline laparotomy inc ision was made. Dissection was carried down through subcutaneous tissues and fascia. Peritoneum was entered. Exposure was achieved. He was found to have erythematous inflamed dilated small bowel. Small bowel was carefully eviscerated from the abdomen to allow for freeing of intestinal obstruction. Distally there were some tight band adhesions as well as several interloop flimsy adhesions which were taken down using a combination of Metzenbaum dissection with limited use of electrocautery. Small bowel was freed in its entirety. Small bowel was traced retrograde and there were no additional appreciable adhesions. Nasogastric tube was confirmed to be in adequate position. Small bowel was then "milked" in a retrograde fashion to aspirate the enteric contents via the NG tube and allow abdominal closure. Enteric contents were returned to the normal anatomic position. There was good hemostasis. Fascia was closed with running #2 Novafil x2. Subcutaneous tissues were irrigated. Skin was closed with skin jonny. Clean dry sterile dressing was applied. Condition: stable Disposition: PACU Specimens:: None Complications:: None immediately apparent
--- NOTE | 2019-12-15 12:48 | Progress Note ---
[facility] Anesthesia Record Part I Intake, IV Amount: 1,100 Estimated blood loss (mL): 10 Urine output (mL): 200 Blood Products used (#): none Blood Pressure: 175/80 SaO2: 94 Pulse Rate: 86 Respiratory Rate: 18 Temperature: 97.0 F Patient is:: Awake, Stable Stable to PACU at:: 12:38
--- NOTE | 2019-12-15 14:04 | Progress Note ---
[facility] Anesthesia Record Part II Discharge Time: 13:08 Destination: Medical Surgical Department PACU nurse assessment reviewed?: Yes Patient Condition:: Good Anesthesia Complications:: None Swallowing reflex intact?: Yes Cyanosis?: No Blood Pressure: 160/79 Pulse Rate: 89 Temperature: 98.0 F Mental Status: Alert & Oriented Pain level:: 2 Nausea and/or vomitting:: None Intake, IV Amount: 50
[2019-12-16 06:11] LABS: Basophils % 0.3 % (0.1-2.0); Eosinophils # 0.1 K/mm3 (0.0-0.4); Lymphocytes # 1.4 K/mm3 (0.7-4.5); Lymphocytes % 13.9 % (10-50)
[2019-12-16 06:18] LABS: Anion Gap 8.9 mEq/L (5-15); Calcium 8.7 mg/dl (8.4-10.2)
[2019-12-16 06:35] LABS: Eosinophils % 0.6 % (0.1-12.0); Hematocrit 43.1 % (42.0-52.0); Mean Corpuscular HGB Conc 33.8 g/dL (31.8-35.4); Mean Corpuscular Volume 88.4 fl (80-94); Mean Platelet Volume 8.3 fl (7.4-10.4); Monocytes # 0.9 K/mm3 (0.1-1.0); Monocytes % 8.9 % (1.7-9.3); Neutrophils # 7.8 K/mm3 (1.8-7.8); Neutrophils % 76.4 % (37.0-80.0); Platelet Count 240 K/mm3 (142-424); Red Blood Count 4.87 M/mm3 (4.60-6.20); Red Cell Distribution Width 12.6 % (11.5-17.5); White Blood Count 10.2 K/mm3 (4.8-10.8)
[2019-12-16 06:43] LABS: Hemoglobin 14.6 g/dL (14.1-18.0)
--- NOTE | 2019-12-16 08:26 | Progress Note ---
Internal Medicine - PN: Subj *Date: 12/16/19 *Time: 08:22 Interval history: Patient has NG tube in place. He has not had any vomiting. He has passed no gas or stool. He still has diffuse abdominal pain. Exam Vital signs and Labs for Last 24 Hours: Temp Pulse Resp BP Pulse Ox 98.5 F 71 20 97/54 L 94 L 12/16/19 07:22 12/16/19 07:22 12/16/19 07:22 12/16/19 07:22 12/16/19 07:22 Laboratory Results - last 24 hr 12/15/19 06:48: Total Counted 100, Neutrophils % (Manual) 88 H, Lymphocytes % (Manual) 7 L, Monocytes % (Manual) 5, Platelet Estimate Normal, RBC Morphology Normal 12/15/19 10:51: POC Glucose 226 H 12/15/19 12:52: POC Glucose 258 H 12/15/19 13:18: POC Glucose 217 H 12/15/19 16:43: POC Glucose 235 H 12/15/19 20:03: POC Glucose 200 H 12/16/19 05:10: POC Glucose 191 H 12/16/19 05:56: WBC 10.2 D, RBC 4.87, Hgb 14.6 D, Hct 43.1, MCV 88.4, MCH 29.9, MCHC 33.8, RDW 12.6, Plt Count 240, MPV 8.3, Neut % (Auto) 76.4, Lymph % (Auto) 13.9, [place] % (Auto) 8.9, Eos % (Auto) 0.6, Baso % (Auto) 0.3, Neut # (Auto) 7.8, Lymph # (Auto) 1.4, [place] # (Auto) 0.9, Eos # (Auto) 0.1, Baso # (Auto) 0.0 12/16/19 05:56: Sodium 134 L, Potassium 3.9, Chloride 96 L, Carbon Dioxide 33 H, Anion Gap 8.9, BUN 21 H, Creatinine 0.80, Estimated Creat Clear 71, Estimated GFR 96, Est GFR ( Amer) 116, Glucose 189 H D, Calcium 8.7 I & O for Last 24 hours: Intake & Output 12/13/19 12/14/19 12/15/19 12/16/19 11:59 11:59 11:59 11:59 Intake Total 2222 / 2222 3812 / 3812 Output Total 2730 / 2730 1335 / 1335 Balance -508 / -508 2477 / 2477 Weight 185 lb 162 lb 9 oz 156 lb 4 oz Radiology Reports for the Last 24 Hours: abdominal x-ray - INTERVAL INSERTION OF NASOGASTRIC TUBE WITH PERSISTENT FINDINGS OF SMALL BOWEL OBSTRUCTION. THE DISTENDED SMALL BOWEL LOOPS MAY BE SLIGHTLY IMPROVED COMPARED TO THE COATING MIXER EXAM FROM THE CT SCAN OF 12/14/2019. - Constitutional no acute distress - *Routine Respiratory Exam Present: CTA bilaterally - *Routine Cardiovascular Exam Present: RRR - *Routine Abdominal Exam Present: soft, tenderness (diffuse) Comments: hypoactive BS - *Routine Extremities Exam Absent: cyanosis, clubbing, edema - *Routine Skin Exam Present: warm. Absent: rash - *Routine Neurological Exam Present: alert, oriented X3 Assessment and Plan (1) Abdominal pain Current visit: Yes Status: Acute Qualifiers: Abdominal location: lower abdomen, unspecified Qualified Code(s): R10.30 - Lower abdominal pain, unspecified Category: Medical Code(s): R10.9 - Unspecified abdominal pain (2) Dehydration Current visit: Yes Status: Acute Category: Medical Code(s): E86.0 - Dehydration (3) Hyperglycemia due to type 2 diabetes mellitus Current visit: Yes Status: Acute Qualifiers: Diabetes mellitus intermediate frame tender insulin use: without intermediate frame tender use Qualified Code(s): E11.65 - Type 2 diabetes mellitus with hyperglycemia Category: Medical Code(s): E11.65 - Type 2 diabetes mellitus with hyperglycemia (4) Intractable nausea and vomiting Current visit: Yes Status: Acute Category: Medical Code(s): R11.2 - Nausea with vomiting, unspecified (5) Medically noncompliant Current visit: Yes Status: Acute Category: Medical Code(s): Z91.19 - Patient's noncompliance with other medical treatment and regimen (6) Small bowel obstruction Current visit: Yes Status: Acute Category: Medical Code(s): K56.609 - Unspecified intestinal obstruction, unspecified as to partial versus complete obstruction - Assessment and plan all Dx Assessment and Plan for all problems:: Exploratory laparotomy with lysis of adhesions and freeing of intestinal obstruction was performed yesterday. NG tube is still in place. Surgery to continue to follow.
--- NOTE | 2019-12-16 09:27 | Progress Note ---
Subjective Narrative: Resting. Feels "OK". Exam Vital signs and Labs for Last 24 Hours: Temp Pulse Resp BP Pulse Ox 98.5 F 71 20 97/54 L 94 L 12/16/19 07:22 12/16/19 07:22 12/16/19 07:22 12/16/19 07:22 12/16/19 07:22 Laboratory Results - last 24 hr 12/15/19 10:51: POC Glucose 226 H 12/15/19 12:52: POC Glucose 258 H 12/15/19 13:18: POC Glucose 217 H 12/15/19 16:43: POC Glucose 235 H 12/15/19 20:03: POC Glucose 200 H 12/16/19 05:10: POC Glucose 191 H 12/16/19 05:56: WBC 10.2 D, RBC 4.87, Hgb 14.6 D, Hct 43.1, MCV 88.4, MCH 29.9, MCHC 33.8, RDW 12.6, Plt Count 240, MPV 8.3, Neut % (Auto) 76.4, Lymph % (Auto) 13.9, [place] % (Auto) 8.9, Eos % (Auto) 0.6, Baso % (Auto) 0.3, Neut # (Auto) 7.8, Lymph # (Auto) 1.4, [place] # (Auto) 0.9, Eos # (Auto) 0.1, Baso # (Auto) 0.0 12/16/19 05:56: Sodium 134 L, Potassium 3.9, Chloride 96 L, Carbon Dioxide 33 H, Anion Gap 8.9, BUN 21 H, Creatinine 0.80, Estimated Creat Clear 71, Estimated GFR 96, Est GFR ( Amer) 116, Glucose 189 H D, Calcium 8.7 I & O for Last 24 hours: Intake & Output 12/13/19 12/14/19 12/15/19 12/16/19 11:59 11:59 11:59 11:59 Intake Total 2222 / 2222 3812 / 3812 Output Total 2730 / 2730 1335 / 1335 Balance -508 / -508 2477 / 2477 Weight 185 lb 162 lb 9 oz 156 lb 4 oz - Constitutional no acute distress - *Routine Respiratory Exam Absent: respiratory distress - *Routine Cardiovascular Exam Present: RRR - *Routine Abdominal Exam Present: soft Comments: dressing intact. no erythema. Progress Note: A&P (1) Abdominal pain Status: Acute Current Visit: Yes (2) Dehydration Status: Acute Current Visit: Yes (3) Hyperglycemia due to type 2 diabetes mellitus Status: Acute Current Visit: Yes (4) Intractable nausea and vomiting Status: Acute Current Visit: Yes (5) Medically noncompliant Status: Acute Current Visit: Yes (6) Small bowel obstruction Status: Acute Assessment and plan: Overall, stable s/p exploratory laparotomy with lysis of adhesions. Increase ambulation Continue IV fluids / NPO status Continue nasogastric decompression Current Visit: Yes
--- NOTE | 2019-12-17 07:56 | Electrocardiograph Report ---
APPROVED REPORT Exam: Resting ECG HR:75 bpm ECG Measurements Heart Rate 75 AXES HI 106 P -15 QRSd 84 QRS 11 QT 372 T25 QTc 415 <Conclusion> Sinus rhythm with short HI Otherwise normal ECG Electronically signed by : Kervin Zambrano, 12/17/2019 07:55:53
--- NOTE | 2019-12-17 08:05 | Progress Note ---
Internal Medicine - PN: Subj *Date: 12/17/19 *Time: 08:03 Interval history: Patient is feeling a little bit better today. He is passing some gas but has not had a bowel movement. He denies any nausea. He does complain of a headache this morning. Exam Vital signs and Labs for Last 24 Hours: Temp Pulse Resp BP Pulse Ox 98.1 F 73 18 123/76 93 L 12/17/19 07:25 12/17/19 07:25 12/17/19 07:25 12/17/19 07:25 12/17/19 07:25 Laboratory Results - last 24 hr 12/16/19 10:32: POC Glucose 196 H 12/16/19 17:01: POC Glucose 248 H 12/16/19 20:21: POC Glucose 157 H 12/17/19 05:17: POC Glucose 136 H I & O for Last 24 hours: Intake & Output 12/14/19 12/15/19 12/16/19 12/17/19 11:59 11:59 11:59 11:59 Intake Total 2222 / 2222 3812 / 3812 2220 / 2220 Output Total 2730 / 2730 1335 / 1335 1000 / 1000 Balance -508 / -508 2477 / 2477 1220 / 1220 Weight 185 lb 162 lb 9 oz 156 lb 4 oz 161 lb 1 oz - Constitutional no acute distress - *Routine Respiratory Exam Present: CTA bilaterally - *Routine Cardiovascular Exam Present: RRR - *Routine Abdominal Exam Present: soft, normoactive bowel sounds, tenderness (diffuse around surgical site) Comments: dressing in place with minimal drainage - *Routine Extremities Exam Absent: cyanosis, clubbing, edema - *Routine Skin Exam Present: warm. Absent: rash - *Routine Neurological Exam Present: alert, oriented X3 Assessment and Plan (1) Abdominal pain Current visit: Yes Status: Acute Qualifiers: Abdominal location: lower abdomen, unspecified Qualified Code(s): R10.30 - Lower abdominal pain, unspecified Category: Medical Code(s): R10.9 - Unspecified abdominal pain (2) Dehydration Current visit: Yes Status: Acute Category: Medical Code(s): E86.0 - Dehydration (3) Hyperglycemia due to type 2 diabetes mellitus Current visit: Yes Status: Acute Qualifiers: Diabetes mellitus intermediate insulin use: without terminal gauger use Qualified Code(s): E11.65 - Type 2 diabetes mellitus with hyperglycemia Category: Medical Code(s): E11.65 - Type 2 diabetes mellitus with hyperglycemia (4) Intractable nausea and vomiting Current visit: Yes Status: Acute Category: Medical Code(s): R11.2 - Nausea with vomiting, unspecified (5) Medically noncompliant Current visit: Yes Status: Acute Category: Medical Code(s): Z91.19 - Patient's noncompliance with other medical treatment and regimen (6) Small bowel obstruction Current visit: Yes Status: Acute Category: Medical Code(s): K56.609 - Unspecified intestinal obstruction, unspecified as to partial versus complete obstruction - Assessment and plan all Dx Assessment and Plan for all problems:: Patient slowly improving. Surgery to follow.
--- NOTE | 2019-12-17 08:16 | Progress Note ---
Subjective Narrative: Patients only complaint is headache. Passing flatus this morning. Minimal NG output. Exam Vital signs and Labs for Last 24 Hours: Temp Pulse Resp BP Pulse Ox 98.1 F 73 18 123/76 93 L 12/17/19 07:25 12/17/19 07:25 12/17/19 07:25 12/17/19 07:25 12/17/19 07:25 Laboratory Results - last 24 hr 12/16/19 10:32: POC Glucose 196 H 12/16/19 17:01: POC Glucose 248 H 12/16/19 20:21: POC Glucose 157 H 12/17/19 05:17: POC Glucose 136 H I & O for Last 24 hours: Intake & Output 12/14/19 12/15/19 12/16/19 12/17/19 11:59 11:59 11:59 11:59 Intake Total 2222 / 2222 3812 / 3812 2220 / 2220 Output Total 2730 / 2730 1335 / 1335 1000 / 1000 Balance -508 / -508 2477 / 2477 1220 / 1220 Weight 185 lb 162 lb 9 oz 156 lb 4 oz 161 lb 1 oz - *Routine Abdominal Exam Present: tenderness Progress Note: A&P (1) Abdominal pain Status: Acute Current Visit: Yes (2) Dehydration Status: Acute Current Visit: Yes (3) Hyperglycemia due to type 2 diabetes mellitus Status: Acute Current Visit: Yes (4) Intractable nausea and vomiting Status: Acute Current Visit: Yes (5) Medically noncompliant Status: Acute Current Visit: Yes (6) Small bowel obstruction Status: Acute Current Visit: Yes Assessment and Plan for All Diagnoses:: Clamp NG tube. Possible removal later if minimal residual.
--- NOTE | 2019-12-18 08:22 | Progress Note ---
Internal Medicine - PN: Subj *Date: 12/18/19 *Time: 08:21 Interval history: Patient states he is feeling a little bit better today. His NG tube is been removed. He is still passing gas but has not had a bowel movement. He continues to have pain around the surgical site in his abdomen. Exam Vital signs and Labs for Last 24 Hours: Temp Pulse Resp BP Pulse Ox 98.5 F 63 16 164/77 H 95 12/18/19 07:37 12/18/19 07:37 12/18/19 07:37 12/18/19 07:37 12/18/19 07:37 Laboratory Results - last 24 hr 12/17/19 11:19: POC Glucose 141 H 12/17/19 16:14: POC Glucose 127 H 12/17/19 20:47: POC Glucose 133 H 12/18/19 05:44: POC Glucose 118 H I & O for Last 24 hours: Intake & Output 12/15/19 12/16/19 12/17/19 12/18/19 11:59 11:59 11:59 11:59 Intake Total 2222 / 2222 3812 / 3812 2220 / 2220 2675 / 2675 Output Total 2730 / 2730 1335 / 1335 1000 / 1000 1615 / 1615 Balance -508 / -508 2477 / 2477 1220 / 1220 1060 / 1060 Weight 162 lb 9 oz 156 lb 4 oz 161 lb 1 oz 161 lb 4 oz - Constitutional no acute distress - *Routine Respiratory Exam Present: CTA bilaterally - *Routine Cardiovascular Exam Present: RRR - *Routine Abdominal Exam Present: soft, tenderness (around surgical site) Comments: Hypoactive BS - *Routine Extremities Exam Absent: cyanosis, clubbing, edema - *Routine Skin Exam Present: warm. Absent: rash - *Routine Neurological Exam Present: alert, oriented X3 Assessment and Plan (1) Abdominal pain Current visit: Yes Status: Acute Qualifiers: Abdominal location: lower abdomen, unspecified Qualified Code(s): R10.30 - Lower abdominal pain, unspecified Category: Medical Code(s): R10.9 - Unspecified abdominal pain (2) Dehydration Current visit: Yes Status: Acute Category: Medical Code(s): E86.0 - Dehydration (3) Hyperglycemia due to type 2 diabetes mellitus Current visit: Yes Status: Acute Qualifiers: Diabetes mellitus long term care social worker insulin use: without long term care social worker use Qualified Code(s): E11.65 - Type 2 diabetes mellitus with hyperglycemia Category: Medical Code(s): E11.65 - Type 2 diabetes mellitus with hyperglyc emia (4) Intractable nausea and vomiting Current visit: Yes Status: Acute Category: Medical Code(s): R11.2 - Nausea with vomiting, unspecified (5) Medically noncompliant Current visit: Yes Status: Acute Category: Medical Code(s): Z91.19 - Patient's noncompliance with other medical treatment and regimen (6) Small bowel obstruction Current visit: Yes Status: Acute Category: Medical Code(s): K56.609 - Unspecified intestinal obstruction, unspecified as to partial versus complete obstruction - Assessment and plan all Dx Assessment and Plan for all problems:: Patient improving. Surgery to continue to follow.
--- NOTE | 2019-12-18 09:23 | Progress Note ---
Subjective Patient reports: no new complaints (no nausea or emesis), flatus, no bowel movement Exam Vital signs and Labs for Last 24 Hours: Temp Pulse Resp BP Pulse Ox 98.5 F 63 16 164/77 H 95 12/18/19 07:37 12/18/19 07:37 12/18/19 07:37 12/18/19 07:37 12/18/19 07:37 Laboratory Results - last 24 hr 12/17/19 11:19: POC Glucose 141 H 12/17/19 16:14: POC Glucose 127 H 12/17/19 20:47: POC Glucose 133 H 12/18/19 05:44: POC Glucose 118 H I & O for Last 24 hours: Intake & Output 12/15/19 12/16/19 12/17/19 12/18/19 11:59 11:59 11:59 11:59 Intake Total 2222 / 2222 3812 / 3812 2220 / 2220 2675 / 2675 Output Total 2730 / 2730 1335 / 1335 1000 / 1000 1615 / 1615 Balance -508 / -508 2477 / 2477 1220 / 1220 1060 / 1060 Weight 162 lb 9 oz 156 lb 4 oz 161 lb 1 oz 161 lb 4 oz - Constitutional no acute distress - *Routine Respiratory Exam Absent: respiratory distress - *Routine Cardiovascular Exam Present: RRR - *Routine Abdominal Exam Absent: distended Comments: incision c/d/i. no erythema. Progress Note: A&P (1) Abdominal pain Status: Acute Current Visit: Yes (2) Dehydration Status: Acute Current Visit: Yes (3) Hyperglycemia due to type 2 diabetes mellitus Status: Acute Current Visit: Yes (4) Intractable nausea and vomiting Status: Acute Current Visit: Yes (5) Medically noncompliant Status: Acute Current Visit: Yes (6) Small bowel obstruction Status: Acute Assessment and plan: Overall, doing well status post laparotomy with lysis of adhesions. He continues to pass flatus and has had no nausea/emesis since removal of his nasogastric tube. Clear liquid diet without carbonation Continue ambulation Current Visit: Yes
--- NOTE | 2019-12-19 09:01 | Progress Note ---
Subjective Patient reports: flatus, bowel movement Narrative: He states that he did have some nausea with "beef broth" yesterday. He states that he was only nauseous because "it tasted horrible". He has had a bowel movement and continues to pass flatus. He is asking for "something more to eat". Exam Vital signs and Labs for Last 24 Hours: Temp Pulse Resp BP Pulse Ox 98.1 F 74 18 127/72 94 L 12/19/19 08:41 12/19/19 08:41 12/19/19 08:41 12/19/19 08:41 12/19/19 08:41 Laboratory Results - last 24 hr 12/18/19 11:20: POC Glucose 117 H 12/18/19 16:15: POC Glucose 142 H 12/18/19 20:02: POC Glucose 161 H 12/19/19 06:13: POC Glucose 156 H I & O for Last 24 hours: Intake & Output 12/16/19 12/17/19 12/18/19 12/19/19 11:59 11:59 11:59 11:59 Intake Total 3812 / 3812 2220 / 2220 2675 / 2675 4499 / 4499 Output Total 1335 / 1335 1000 / 1000 1765 / 1765 2540 / 2540 Balance 2477 / 2477 1220 / 1220 910 / 910 1958 / 1958 Weight 156 lb 4 oz 161 lb 1 oz 161 lb 4 oz 161 lb 4.008 oz - Constitutional no acute distress - *Routine Respiratory Exam Absent: respiratory distress - *Routine Cardiovascular Exam Present: RRR - *Routine Abdominal Exam Present: soft Comments: Incision clean, dry, and intact. No erythema. Progress Note: A&P (1) Abdominal pain Status: Acute Current Visit: Yes (2) Dehydration Status: Acute Current Visit: Yes (3) Hyperglycemia due to type 2 diabetes mellitus Status: Acute Current Visit: Yes (4) Intractable nausea and vomiting Status: Acute Current Visit: Yes (5) Medically noncompliant Status: Acute Current Visit: Yes (6) Small bowel obstruction Status: Acute Assessment and plan: Overall, doing fairly well postoperative day 4 status post exploratory laparotomy with extensive lysis of adhesions. He has had a bowel movement and continues to pass flatus. He did have an episode of nausea with a small amount of emesis with "beef broth". He is adamant that he became nauseous "because it tasted horrible". Full liquid diet OK from surgical standpoint for possible discharge later today if he tolerates full liquids Remove one half of sutures Close outpatient follow-up (to see Dr. Guerra on Friday12/24/19) Current Visit: Yes
--- NOTE | 2019-12-19 12:19 | Progress Note ---
Internal Medicine - PN: Subj *Date: 12/19/19 *Time: 12:15 Interval history: He is doing much better. He states that he has had several bowel movements. Tolerating liquids. Surgery's note is reviewed. Exam Vital signs and Labs for Last 24 Hours: Temp Pulse Resp BP Pulse Ox 98.1 F 74 18 127/72 94 L 12/19/19 08:41 12/19/19 08:41 12/19/19 08:41 12/19/19 08:41 12/19/19 08:41 Laboratory Results - last 24 hr 12/18/19 16:15: POC Glucose 142 H 12/18/19 20:02: POC Glucose 161 H 12/19/19 06:13: POC Glucose 156 H 12/19/19 11:01: POC Glucose 168 H Laboratory Tests 12/14/19 12/15/19 12/16/19 11:10 06:48 05:56 WBC 19.7 H 13.9 H D 10.2 D Hgb 17.7 16.5 14.6 D I & O for Last 24 hours: Intake & Output 12/17/19 12/18/19 12/19/19 12/20/19 11:59 11:59 11:59 11:59 Intake Total 2220 / 2220 2675 / 2675 4650 / 4650 173 / 173 Output Total 1000 / 1000 1765 / 1765 2540 / 2540 Balance 1220 / 1220 910 / 910 2110 / 2110 173 / 173 Weight 161 lb 1 oz 161 lb 4 oz 161 lb 4.008 oz Microbiology Reports for the Last 24 Hours: Microbiology 12/14/19 11:50 Blood Blood Culture - Final NO GROWTH AFTER 5 DAYS 12/14/19 11:50 Blood Blood Culture - Final NO GROWTH AFTER 5 DAYS - Constitutional no acute distress (A bit more talkative than usual) - *Routine HEENT Exam Eye: Present: PERRL ENT: Present: mucous membranes moist - *Routine Respiratory Exam Present: CTA bilaterally - *Routine Cardiovascular Exam Present: RRR - *Routine Abdominal Exam Present: normoactive bowel sounds, tenderness - *Routine Extremities Exam Absent: edema Assessment and Plan (1) Abdominal pain Current visit: Yes Status: Acute Qualifiers: Abdominal location: lower abdomen, unspecified Qualified Code(s): R10.30 - Lower abdominal pain, unspecified Category: Medical Code(s): R10.9 - Unspecified abdominal pain (2) Dehydration Current visit: Yes Status: Acute Category: Medical Code(s): E86.0 - Dehydration (3) Hyperglycemia due to type 2 diabetes mellitus Current visit: Yes Status: Acute Qualifiers: Diabetes mellitus dedicated intermodal truck driver insulin use: without dedicated intermodal truck driver use Qualified Code(s): E11.65 - Type 2 diabetes mellitus with hyperglycemia Category: Medical Code(s): E11.65 - Type 2 diabetes mellitus with hyperglycemia (4) Intractable nausea and vomiting Current visit: Yes Status: Acute Category: Medical Code(s): R11.2 - Nausea with vomiting, unspecified (5) Medically noncompliant Current visit: Yes Status: Acute Category: Medical Code(s): Z91.19 - Patient's noncompliance with other medical treatment and regimen (6) Small bowel obstruction Current visit: Yes Status: Acute Category: Medical Code(s): K56.609 - Unspecified intestinal obstruction, unspecified as to partial versus complete obstruction - Assessment and plan all Dx Assessment and Plan for all problems:: Recheck electrolytes. Plan discharge for tomorrow.
[2019-12-19 13:24] LABS: Anion Gap 9.7 mEq/L (5-15); Calcium 8.7 mg/dl (8.4-10.2)
--- NOTE | 2019-12-20 08:32 | Progress Note ---
Internal Medicine - PN: Subj *Date: 12/20/19 *Time: 08:25 Interval history: Patient states he is doing well. He is taking full liquids without nausea or vomiting. He passes flatus and bowels have moved. He ambulates in the room without problems. He is ready to go home. Exam Vital signs and Labs for Last 24 Hours: Temp Pulse Resp BP Pulse Ox 98.4 F 74 24 138/83 92 L 12/20/19 07:43 12/20/19 07:43 12/20/19 07:43 12/20/19 07:43 12/20/19 07:43 Laboratory Results - last 24 hr 12/19/19 11:01: POC Glucose 168 H 12/19/19 12:56: Sodium 135 L, Potassium 3.7, Chloride 100, Carbon Dioxide 29, Anion Gap 9.7, BUN 10, Creatinine 0.60 L, Estimated Creat Clear 73, Estimated GFR 134, Est GFR ( Amer) 162, Glucose 168 H, Calcium 8.7 12/19/19 16:41: POC Glucose 160 H 12/19/19 20:53: POC Glucose 166 H 12/20/19 06:13: POC Glucose 154 H I & O for Last 24 hours: Intake & Output 12/17/19 12/18/19 12/19/19 12/20/19 11:59 11:59 11:59 11:59 Intake Total 2220 / 2220 2675 / 2675 4650 / 4650 3653 / 3653 Output Total 1000 / 1000 1765 / 1765 2540 / 2540 1175 / 1175 Balance 1220 / 1220 910 / 910 2110 / 2110 2478 / 2478 Weight 161 lb 1 oz 161 lb 4 oz 161 lb 4.008 oz 163 lb 5 oz Microbiology Reports for the Last 24 Hours: Microbiology 12/14/19 11:50 Blood Blood Culture - Final NO GROWTH AFTER 5 DAYS 12/14/19 11:50 Blood Blood Culture - Final NO GROWTH AFTER 5 DAYS - Constitutional no acute distress - *Routine Respiratory Exam Present: CTA bilaterally (Anteriorly and posteriorly) - *Routine Cardiovascular Exam Present: RRR - *Routine Abdominal Exam Present: soft, normoactive bowel sounds, tenderness (Postoperative). Absent: distended Comments: Willing surgical wound. Every other Steri-Strip - *Routine Extremities Exam Present: pulses intact. Absent: edema, calf tenderness - *Routine Neurological Exam Present: alert, oriented X3 Assessment and Plan (1) Abdominal pain Current visit: Yes Status: Acute Qualifiers: Abdominal location: lower abdomen, unspecified Qualified Code(s): R10.30 - Lower abdominal pain, unspecified Category: Medical Code(s): R10.9 - Unspecified abdominal pain (2) Dehydration Current visit: Yes Status: Acute Category: Medical Code(s): E86.0 - Dehydration (3) Hyperglycemia due to type 2 diabetes mellitus Current visit: Yes Status: Acute Qualifiers: Diabetes mellitus remote computer terminal operator insulin use: without snf use Qualified Code(s): E11.65 - Type 2 diabetes mellitus with hyperglycemia Category: Medical Code(s): E11.65 - Type 2 diabetes mellitus with hyperglycemia (4) Intractable nausea and vomiting Current visit: Yes Status: Acute Category: Medical Code(s): R11.2 - Nausea with vomiting, unspecified (5) Medically noncompliant Current visit: Yes Status: Acute Category: Medical Code(s): Z91.19 - Patient's noncompliance with other medical treatment and regimen (6) Small bowel obstruction Current visit: Yes Status: Acute Category: Medical Code(s): K56.609 - Unspecified intestinal obstruction, unspecified as to partial versus complete obstruction - Assessment and plan all Dx Assessment and Plan for all problems:: Probable discharge home today.
--- NOTE | 2019-12-20 08:45 | Progress Note ---
Subjective Patient reports: feels better Narrative: No complaints. Tolerating diet and bowels moving. Exam Vital signs and Labs for Last 24 Hours: Temp Pulse Resp BP Pulse Ox 98.4 F 74 24 138/83 92 L 12/20/19 07:43 12/20/19 07:43 12/20/19 07:43 12/20/19 07:43 12/20/19 07:43 Laboratory Results - last 24 hr 12/19/19 11:01: POC Glucose 168 H 12/19/19 12:56: Sodium 135 L, Potassium 3.7, Chloride 100, Carbon Dioxide 29, Anion Gap 9.7, BUN 10, Creatinine 0.60 L, Estimated Creat Clear 73, Estimated GFR 134, Est GFR ( Amer) 162, Glucose 168 H, Calcium 8.7 12/19/19 16:41: POC Glucose 160 H 12/19/19 20:53: POC Glucose 166 H 12/20/19 06:13: POC Glucose 154 H I & O for Last 24 hours: Intake & Output 12/17/19 12/18/19 12/19/19 12/20/19 11:59 11:59 11:59 11:59 Intake Total 2220 / 2220 2675 / 2675 4650 / 4650 3653 / 3653 Output Total 1000 / 1000 1765 / 1765 2540 / 2540 1175 / 1175 Balance 1220 / 1220 910 / 910 2110 / 2110 2478 / 2478 Weight 161 lb 1 oz 161 lb 4 oz 161 lb 4.008 oz 163 lb 5 oz Microbiology Reports for the Last 24 Hours: Microbiology 12/14/19 11:50 Blood Blood Culture - Final NO GROWTH AFTER 5 DAYS 12/14/19 11:50 Blood Blood Culture - Final NO GROWTH AFTER 5 DAYS - *Routine Abdominal Exam Present: soft Comments: Incision clean. Progress Note: A&P (1) Abdominal pain Status: Acute Current Visit: Yes (2) Dehydration Status: Acute Current Visit: Yes (3) Hyperglycemia due to type 2 diabetes mellitus Status: Acute Current Visit: Yes (4) Intractable nausea and vomiting Status: Acute Current Visit: Yes (5) Medically noncompliant Status: Acute Current Visit: Yes (6) Small bowel obstruction Status: Acute Current Visit: Yes Assessment and Plan for All Diagnoses:: Okay for discharge home.
--- NOTE | 2019-12-20 14:48 | Discharge Summary ---
General - General Admission date:: 12/14/19 Discharge date: 12/20/19 HPI HPI: This 69-year-old white male presented in the emergency room with abdominal pain and vomiting. He was found to have evidence of a small bowel obstruction with the transition point in the right lower quadrant. He has a history of appendectomy and history of left inguinal herniorrhaphy. The patient's illness began this morning about 10:30 AM after he got off work at [employer]. 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 He had rather acute onset of abdominal pain and was vomiting large amounts of material. The patient has a history of diabetes mellitus type 2 which started 10 or 12 years ago he states. He is not been on medications for about 4 years. He recently moved here from [facility]. A nasogastric tube was placed in the emergency room. The patient has been seen by Dr. Guerra. See his consultation note. Hospital Course Hospital Course: Patient was seen by Dr. Guerra and the plan was to decompress with an NG tube a nd see if the obstruction responded , otherwise he would be a surgical candidate. He was started on sliding scale insulin due to his diabetes. The patient had an abdominal x-ray on 12/14/2019 with persistent findings of small bowel obstruction. Dr. Guerra decided to perform an exploratory laparotomy with lysis of adhesions and freeing of the intestinal obstruction. The patient tolerated the procedure well. He had no vomiting, but his abdomen remained tender. He was encouraged to increase his ambulation and continue with IV fluids and remain n.p.o. The patient did begin passing some gas. He had minimal NG output therefore his NG tube was removed. He was started on a clear liquid diet without carbonation. He felt better after the NG tube removal. He continued to pass gas. He did have some nausea with beef broth but stated it was only because "it tasted horrible." He did have a bowel movement and was asking for more to eat. His diet was advanced to a full liquid diet. He kodi erated this well and continued to pass flatus. His bowels continue to move. He was able to ambulate in the room without problems and wanted to be discharged home. He was stable for discharge with close outpatient surgery follow-up. Objective Vital signs: Temp Pulse Resp BP Pulse Ox 98.4 F 74 24 138/83 92 L 12/20/19 07:43 12/20/19 07:43 12/20/19 07:43 12/20/19 07:43 12/20/19 07:43 Narrative: - Constitutional severe distress - *Routine HEENT Exam Head: Present: normocephalic Eye: Present: PERRL ENT: Present: mucous membranes moist - *Routine Neck Exam Absent: carotid bruit - Routine Chest/Breast/Axilla Exam Chest wall: Absent: tenderness - *Routine Respiratory Exam Present: rales (Some rales at the bases.) - *Routine Cardiovascular Exam Present: RRR - *Routine Abdominal Exam Present: tenderness, distended, surgical scars. Absent: organomegaly, hernia - *Routine Exam Groin: Present: inguinal hernia (Scar left groin) Comments: Large appendectomy scar in the right lower quadrant - *Routine Extremities Exam Absent: edema - *Routine Neurological Exam Present: alert, oriented X3 - Routine Psychiatric Exam Present: normal affect (He is uncomfortable.) Results Labs on day of discharge: Labs from last 24 hours 12/20/19 12/19/19 12/19/19 06:13 20:53 16:41 POC Glucose 154 H 166 H 160 H DS: Diagnosis - Discharge Diagnosis (1) Abdominal pain Status: Acute (2) Dehydration Status: Acute (3) Hyperglycemia due to type 2 diabetes mellitus Status: Acute (4) Intractable nausea and vomiting Status: Acute (5) Medically noncompliant Status: Acute (6) Small bowel obstruction Status: Acute Discharge Plan - Patient Discharge Instructions ACTIVITY: Limited activity Patient Instructions: Carbohydrate-Counting Diet, Low-Fiber/Low-Residue Diet, DI for Small Bowel Obstruction, DI Following Your Exploratory Laparotomy, DI for Surgical Site Infection - Follow up Plan Follow up with: Art Guerra MD [Staff Physician] - 12/24/19 1:15 pm Amber Mendez MD [Staff Physician] - 12/27/19 10:00 am Unknown provider or service follow up:: 12/20/19 09:03 Follow-up with Dr. Mendez in one week Disposition: Home, Self-Fdc Medications: Home Medications Medication Instructions Recorded Confirmed Type Hydrocod/Acet 5/325 mg [Snook 1 tab PO TID PRN #15 tab 12/20/19 Rx 5/325mg tablet] Metformin HCl [Metformin HCl ER] 500 mg PO DAILY #30 tab.er.24h 12/20/19 Rx Prescriptions/Medication Reconciliation: New Hydrocod/Acet 5/325 mg [Snook 5/325mg tablet] 1 tab PO TID PRN #15 tab PRN Reason: pain Metformin HCl [Metformin HCl ER] 500 mg PO DAILY #30 tab.er.24h - Problem Reconciliation Problems Reviewed?: Yes
== END 2019-12-20 10:40 | disposition home or self-care (01) | DRG 337 ==
LOC: ER 11:12 → 2ND 13:11
PROVIDERS: ADMIT Family Medicine; ATTEND Family Medicine
CPT/HCPCS: 36415; 71010; 71045; 74019; 74020; 74177; 80048; 80053; 81001; 82009; 82150; 82803; 82962; 83036; 83605; 83690; 84484; 85007; 85025; 87040; 87275; 87276; 93005; 96365; 96367; 96375; 99285; J2405; J2710; Q9967

== ENCOUNTER 2021-06-07 11:29 | Emergency (ER) | payer MEDICARE, SELFPAY ==
[2021-06-07 11:29] VITALS: BP 140/87; PULSE 83; RESP 18; TEMP 36.9; O2SAT 98; BMI 23.0
--- NOTE | 2021-06-07 11:37 | CT_ITS ---
PROCEDURE: CT HEAD/BRAIN WO CON CLINICAL INDICATION: headaches COMPARISON: No exams were available for comparison TECHNIQUE: Axial images obtained. All CT scans at the facility use one or more dose reduction, viz: automated exposure control, ma/kV adjustment per patient size (including targeted exams where dose is matched to indication, i.e. head), or iterative reconstruction technique. FINDINGS: No midline shift, mass effect, intracranial hemorrhage, hydrocephalus, or extra-axial fluid collection is evident. There is generalized atrophy with hypoattenuation of the periventricular white matter consistent with microangiopathic changes. The calvarium has an unremarkable appearance. No mastoid effusion. Moderate mucosal thickening involves the ethmoid sinuses. IMPRESSION: 1. No acute intracranial findings. 2. Ethmoid sinus disease Dictated by: Jim Nuñez MD 06/07/2021 12:46 Jim Nuñez MD in [place] 06/07/2021 12:46
--- NOTE | 2021-06-07 12:09 | HMH.EDGENADL ---
ED Disposition Clinical Impression: Tension headache Disposition: Home, Self-Care Condition on Discharge: Good Instructions: DI for Migraine, DI for Headache Additional Instructions: Follow-up with your primary care doctor. Keep a headache journal. Avoid changes in sleep, diet, medications. Take Tylenol and ibuprofen for pain. Return to the emergency department for any new or worsening symptoms Referrals: Provider,Referral, [Primary Care Provider] - Time of Disposition: 13:00 - Critical Care Critical Care Time: No Attestation: On , the high probability of a clinically significant, sudden or life threatening deterioration of the following system(s) required my full and direct attention, intervention and personal management. The time I documented below is in addition to time spent performing reported procedures but includes the following listed in this critical care notation. Medical Decision Making - Medical Records Medical records reviewed: Yes: I reviewed the patient's medical records. - Hood Inquiry Pt receiving controlled substance: No Vital Signs: 06/07/21 11:29 Temperature 98.5 F Temperature Source Oral Pulse Rate [Radial] 83 Respiratory Rate 18 Blood Pressure [Right Arm] 140/87 Blood Pressure Mean [Right Arm] 104 Blood Pressure Position [Right Arm] Sitting 02 Sat by Pulse Oximetry 98 Oxygen Delivery Method Room Air Orders (Tests/Meds): ED MEDICATIONS Discontinued Medications Generic Name Dose Route Start Last Admin Trade Name Freq PRN Reason Stop Dose Admin Dexamethasone Sodium Phosphate 8 mg 06/07/21 11:38 06/07/21 12:08 Dexamethasone 4mg/Ml 1ml Vial IV 06/07/21 11:39 8 mg ONCE ONE Administration Sodium Chloride 1,000 mls @ 999 mls/hr 06/07/21 11:45 06/07/21 12:09 Sod Chlor 0.9% 1000ml Bag IV 06/07/21 12:45 999 mls/hr .Q1H1M FELISA Administration Ketorolac Tromethamine 15 mg 06/07/21 11:39 06/07/21 12:08 Ketorolac 30mg/Ml Vial IV 06/07/21 11:40 15 mg ONCE ONE Administration - CT Data CT Scan: Head Time Received: 12:[address] Reviewed: Yes: I have reviewed the patient's CT results Preliminary Findings: Normal/NAD Findings Narrative: FINDINGS: No midline shift, mass effect, intracranial hemorrhage, hydrocephalus, or extra-axial fluid collection is evident. There is generalized atrophy with hypoattenuation of the periventricular white matter consistent with microangiopathic changes. The calvarium has an unremarkable appearance. No mastoid effusion. Moderate mucosal thickening involves the ethmoid sinuses. IMPRESSION: 1. No acute intracranial findings. 2. Ethmoid sinus disease Medical Decision Narrative: In summary this is a 70-year-old male presenting to the emergency department with headache. Patient overall well-appearing on arrival. Vital signs within normal limits. Headache is similar to ones he has about once monthly. Is not described as sudden or maximal. No neurologic changes. No nausea or vomiting. No signs of systemic illness. We will treat presumptively for tension, migraine. Given 10 mg dexamethasone and 15 mg Toradol. I do have concern that he has recurrent headaches, never had head imaging. Will obtain noncontrast head CT. Noncontrast head CT shows no intracranial mass or bleed. On reassessment patient feeling better after medication. Counseled him to monitor his symptoms at home, keep a headache journal. Try to avoid changes in sleep, diet. follow-up with PCP. Given return precautions for any new or worsening symptoms General Adult HPI - General Chief complaint: Headache Stated complaint: migraine, cough Time Seen by Provider: 06/07/21 11:49 Mode of Arrival: Ambulatory Limitations: No Limitations Description of Symptoms (Recalled from ER Triage Doc. by RN): TO ED PER PVT CAR WITH C/O MIGRAIN H/A, COUGH STARTING YESTERDAY. PT STATES HX OF MIGRAINS. TOOK TYLENOL LASTNIGHT AT 9:30 WITH NO RELIEF
--- NOTE | 2021-06-07 12:34 | PC.NURSE ---
gone to ct
[2021-06-07 13:10] VITALS: BP 158/79; PULSE 80; RESP 18; TEMP 36.9; O2SAT 98
[2021-06-07 13:13] VITALS: BP 159/79; PULSE 78; RESP 16; TEMP 36.6; O2SAT 98
== END 2021-06-07 13:14 | disposition home or self-care (01) ==
PROVIDERS: Emergency Provider Emergency Medicine
DX: G44.209 Tension-type headache, unspecified, not intractable (principal); E11.9 Type 2 diabetes mellitus without complications; Z87.891 Personal history of nicotine dependence
CPT/HCPCS: 70450; 96365; 96375; 99282

== ENCOUNTER 2021-07-03 10:08 | Emergency (ER) | payer MEDICARE, SELFPAY ==
[2021-07-03 10:21] VITALS: BP 164/83; PULSE 60; RESP 18; TEMP 37.1; O2SAT 97; BMI 23.7
[2021-07-03 10:33] VITALS: BP 111/84; PULSE 57; RESP 18; TEMP 36.8; O2SAT 98; BMI 23.7
--- NOTE | 2021-07-03 10:49 | HMH.EDUTC ---
[facility] [place] Clinical Impression: Acute bronchitis Qualifiers: Bronchitis organism: unspecified organism Qualified Code(s): J20.9 - Acute bronchitis, unspecified Disposition: Home, Self-Care Condition on Discharge: Good Instructions: Acute Bronchitis, DI for Acute Bronchitis Additional Instructions: Drink plenty of fluids. Take tylenol or ibuprofen for pain or fever. Take the medications as directed. Follow up with your regular doctor. GO TO THE ER FOR ANY WORSENING SYMPTOMS The cough medication (promethazine dm) will make you drowsy, so don't drive or operate heavy machinery after taking it. Once you get better from this current illness, please consider getting vaccinated against covid-19. You really need to be vaccinated. Prescriptions: Promethazine/Dextromethorphan [Promethazine-Dm Syrup] 5 ml PO Q6HP PRN #240 ml PRN Reason: Cough Transmission Status: Received by [facility] #[id number] predniSONE [Deltasone 10mg tablet] 10 mg PO BID 3 Days #6 tab Transmission Status: Received by [facility] #[id number] Benzonatate [Tessalon Perle 100mg Cap] 100 mg PO TIDP PRN #30 cap PRN Reason: Cough Transmission Status: Received by [facility] #[id number] Azithromycin [Z-Abimael 250mg Tab*] 250 mg PO UD DOSE PK #6 tab Transmission Status: Received by [facility] #[id number] Referrals: Provider,Referral, [Primary Care Provider] - Forms: Work/School Release Time of Disposition: 10:55 Medical Decision Making - Medical Records Medical records reviewed: No: I reviewed the patient's medical records. - Hood Inquiry Pt receiving controlled substance: No Vital Signs: 07/03/21 10:21 07/03/21 10:33 07/03/21 11:00 Temperature 98.7 F 98.3 F 98.3 F Temperature Source Oral Oral Oral Pulse Rate 57 L Pulse Rate [Left Radial] 60 57 L Respiratory Rate 18 18 18 Blood Pressure 111/84 Blood Pressure [Left Arm] 164/83 H 111/84 Blood Pressure Mean [Left Arm] 110 93 Blood Pressure Source Automatic Cuff Blood Pressure Source [Left Arm] Automatic Cuff Automatic Cuff Blood Pressure Position Sitting Blood Pressure Position [Left Arm] Sitting Sitting 02 Sat by Pulse Oximetry 97 98 Oxygen Delivery Method Room Air Room Air Room Air [facility] [place] - General Stated complaint: cough Time Seen by Provider: 07/03/21 10:49 Mode of Arrival: Ambulatory Source of Information: Patient Limitations: No Limitations Description of Symptoms (Recalled from Triage Doc. by RN): cough HEENT Symptoms (Recalled from RN notes): No Resp Symptoms (Recalled from RN notes): Yes Skin Symptoms (Recalled from RN notes): No MS Symptoms (Recalled from RN notes): No Functional Status (Recalled from RN notes): na - History of Present Illness Provider Complaint: He states that he has been coughing for the past 10 days or so. He denies any fever or chills. He denies chest pain. He works at [employer] and he is checked for covid-19 twice per week. His last test was yesterday and it was negative as it always has been. He has not been vaccinated against covid-19. - Related Data Previous Rx's Medication Instructions Recorded Metformin HCl [Metformin HCl ER] 500 mg PO DAILY #30 tab.er.24h 12/20/19 Azithromycin [Z-Abimael 250mg Tab*] 250 mg PO UD DOSE PK #6 tab 07/03/21 Benzonatate [Tessalon Perle 100mg 100 mg PO TIDP PRN #30 cap 07/03/21 Cap] Promethazine/Dextromethorphan 5 ml PO Q6HP PRN #240 ml 07/03/21 [Promethazine-Dm Syrup] predniSONE [Deltasone 10mg tablet] 10 mg PO BID 3 Days #6 tab 07/03/21 Allergies Allergy/AdvReac Type Severity Reaction Status Date / Time No Known Allergies Allergy Verified 01/24/20 10:59 - Worker's Comp Is this a Worker's Comp case?: No [facility] History - Hepatitis A Screen Drug use history?: No High risk sexual behaviors?: No History of sexually transmitted infection?: No Currently employed?: No Childcare worker?: No Do you have indoor plumbing?: Yes Do you have
[2021-07-03 11:00] VITALS: BP 111/84; PULSE 57; RESP 18; TEMP 36.8; O2SAT 98
== END 2021-07-03 11:01 | disposition home or self-care (01) ==
LOC: ER 10:21 → UTC 10:22
PROVIDERS: Emergency Provider Nurse Practitioner Family
DX: J20.9 Acute bronchitis, unspecified (principal); E11.9 Type 2 diabetes mellitus without complications; Z87.891 Personal history of nicotine dependence
CPT/HCPCS: G0463; 99202

== ENCOUNTER 2021-10-24 22:05 | Emergency (ER) | payer MEDICARE, SELFPAY ==
[2021-10-24 22:06] VITALS: BP 162/89; PULSE 71; RESP 16; TEMP 36.9; O2SAT 95; BMI 29.2
--- NOTE | 2021-10-24 22:17 | XR_ITS ---
PROCEDURE INFORMATION: Exam: XR Chest Exam date and time: 10/24/2021 10:17 PM Age: 71 years old Clinical indication: Other: Congestion TECHNIQUE: Imaging protocol: XR of the chest. Views: 2 views. COMPARISON: CR XR CHEST PORTABLE 12/14/2019 1:20 PM FINDINGS: Lungs: Scattered probable atelectasis in the lower lobes. No consolidation. Pleural spaces: Unremarkable. No pleural effusion. No pneumothorax. Heart/Mediastinum: Unremarkable. No cardiomegaly. Bones/joints: Unremarkable. IMPRESSION: No acute findings.
[2021-10-24 22:25] LABS: Basophils # 0.1 K/mm3 (0-0.2); Basophils % 2.1 % (0.1-2.0); Eosinophils % 0.4 % (0.1-12.0); Hematocrit 47.8 % (42.0-52.0); Hemoglobin 15.5 g/dL (14.1-18.0); Lymphocytes # 0.6 K/mm3 (0.7-4.5); Lymphocytes % 8.8 % (10-50); Mean Corpuscular HGB Conc 32.3 g/dL (31.8-35.4); Mean Corpuscular Hemoglobin 29.1 pg (27.0-31.2); Mean Corpuscular Volume 89.9 fl (80-94); Mean Platelet Volume 8.5 fl (7.4-10.4); Monocytes # 0.4 K/mm3 (0.1-1.0); Monocytes % 6.2 % (1.7-9.3); Neutrophils # 5.2 K/mm3 (1.8-7.8); Neutrophils % 82.6 % (37.0-80.0); Platelet Count 275 K/mm3 (142-424); Red Blood Count 5.32 M/mm3 (4.60-6.20); Red Cell Distribution Width 13.1 % (11.5-17.5); White Blood Count 6.3 K/mm3 (4.8-10.8)
[2021-10-24 22:35] LABS: Alanine Aminotransferase 21 U/L (12-78); Albumin Level 4.6 g/dl (3.5-5.0); Albumin/Globulin Ratio 1.2 (1.1-1.8); Alkaline Phosphatase 71 U/L (38-126); Anion Gap 11.5 mEq/L (5-15); Aspartate Amino Transferase 25 U/L (17-59); Bilirubin,Total 0.5 mg/dl (0.2-1.3); Blood Urea Nitrogen 9 mg/dl (9-20); Calcium 9.7 mg/dl (8.4-10.2); Carbon Dioxide 31 mmol/L (22.0-30.0); Chloride 101 mmol/L (98-107); Creatinine Clearance Estimated 75 mL/min (50-200); Estimated Glomerular Filt Rate 96 ml/min (>60); GFR (African American) 116 ML/MIN (>60); Globulin 3.7 g/dL (1.3-3.2); Glucose 183 mg/dl (74-100); Potassium 3.5 mmoL/L (3.5-5.1); Sodium 140 mmol/L (136-145); Total Protein,Serum 8.3 g/dl (6.3-8.2)
[2021-10-24 22:40] LABS: C-Reactive Protein 56.9 mg/L (0-4)
[2021-10-24 22:54] LABS: Procalcitonin 0.062 ng/mL (0.0-2.0)
[2021-10-24 23:12] LABS: Erythrocyte Sedimentation Rate 88 mm/hr (0-20)
--- NOTE | 2021-10-25 00:42 | HMH.EDSOB ---
ED Disposition Clinical Impression: Acute bronchitis Qualifiers: Bronchitis organism: unspecified organism Qualified Code(s): J20.9 - Acute bronchitis, unspecified Disposition: Home, Self-Care Condition on Discharge: Good Instructions: DI for Acute Bronchitis Additional Instructions: fluids and use meds and see pcp for follow up Prescriptions: levoFLOXacin [Levaquin 500mg tab] 500 mg PO DAILY #7 tab Transmission Status: Pending to [email or web address] # predniSONE [Prednisone 20mg Tab] 20 mg PO BID #10 tab Transmission Status: Pending to [email or web address] # Referrals: Provider,Referral, [Primary Care Provider] - - Critical Care Critical Care Time: No Attestation: On 10/24/21, the high probability of a clinically significant, sudden or life threatening deterioration of the following system(s) required my full and direct attention, intervention and personal management. The time I documented below is in addition to time spent performing reported procedures but includes the following listed in this critical care notation. Medical Decision Making - Medical Records Medical records reviewed: Yes: I reviewed the patient's medical records. - Hood Inquiry Pt receiving controlled substance: No Vital Signs: 10/24/21 22:06 Temperature 98.4 F Temperature Source Oral Pulse Rate [Right] 71 Respiratory Rate 16 Blood Pressure [Right Arm] 162/89 H Blood Pressure Mean [Right Arm] 113 02 Sat by Pulse Oximetry 95 Oxygen Delivery Method Room Air - Lab Data Lab results reviewed: Yes: I reviewed the patient's lab results. Lab Results 10/24/21 22:16: WBC 6.3, RBC 5.32, Hgb 15.5, Hct 47.8, MCV 89.9, MCH 29.1, MCHC 32.3, RDW 13.1, Plt Count 275, MPV 8.5, Neut % (Auto) 82.6 H, Lymph % (Auto) 8.8 L, Mcminn % (Auto) 6.2, Eos % (Auto) 0.4, Baso % (Auto) 2.1 H, Neut # (Auto) 5.2, Lymph # (Auto) 0.6 L, Mcminn # (Auto) 0.4, Eos # (Auto) 0.0, Baso # (Auto) 0.1, ESR 88 H 10/24/21 22:16: Sodium 140, Potassium 3.5, Chloride 101, Carbon Dioxide 31 H, Anion Gap 11.5, BUN 9, Creatinine 0.80, Estimated Creat Clear 75, Estimated GFR 96, Est GFR ( Amer) 116, Glucose 183 H, Calcium 9.7, Total Bilirubin 0.5, AST 25, ALT 21, Alkaline Phosphatase 71, C-Reactive Protein 56.9 H, Total Protein 8.3 H, Albumin 4.6, Globulin 3.7 H, Albumin/Globulin Ratio 1.2, Procalcitonin 0.062 Result diagrams: 10/24/21 22:16 10/24/21 22:16 Orders (Tests/Meds): ED MEDICATIONS Generic Name Dose Route Start Last Admin Trade Name Freq PRN Reason Stop Dose Admin Sodium Chloride 1,000 mls @ 999 mls/hr 10/24/21 22:30 10/24/21 22:34 Sod Chlor 0.9% 1000ml Bag IV 10/24/21 23:30 999 mls/hr .Q1H1M FELISA Administration Discontinued Medications Generic Name Dose Route Start Last Admin Trade Name Freq PRN Reason Stop Dose Admin Dexamethasone Sodium Phosphate 10 mg 10/24/21 22:17 10/24/21 22:33 Dexamethasone 4mg/Ml 5ml Mdv IV 10/24/21 22:18 10 mg ONCE ONE Administration ORDERS Category Date Time Status Covid-19 Nasal PCR ([facility]) Routine Lab 10/24/21 22:16 Received UA [Urinalysis and Microscopic] Stat Lab 10/24/21 22:16 Ordered - Radiology Data #1 Image(s): Chest Image Reviewed: Yes I have reviewed radiologist's interpretation Preliminary Findings: Normal/NAD Medical Decision Narrative: hx consistent with bronchitis - covid-19 pending and stable exam and labs and vital signs Resp/SOB HPI - General Chief Complaint: Upper Respiratory Infection Stated Complaint: cough, chills Time Seen by Provider: 10/25/21 00:42 Mode of Arrival: Ambulatory Source of Information: Patient, Medical Record Limitations: No Limitations Description of Symptoms (Recalled from ER Triage Doc. by RN): pt c/o DIAL,runny nose, cough, congestion,weak x 2 weeks - History of Present Illness has prod cough and uri sx over the last few days - no tob and no def covid-19 exposure MD Complaint: cough Onset (ago):
[2021-10-25 00:51] VITALS: BP 145/74; PULSE 69; RESP 16; TEMP 36.9; O2SAT 95
== END 2021-10-25 00:52 | disposition home or self-care (01) ==
PROVIDERS: Emergency Provider Emergency Medicine
DX: U07.1 COVID-19 (principal); J20.9 Acute bronchitis, unspecified; E11.65 Type 2 diabetes mellitus with hyperglycemia; Z87.891 Personal history of nicotine dependence
CPT/HCPCS: 71046; 80053; 84145; 85025; 85651; 86140; 96365; 96375; 99283; C9803; U0003; U0005

== ENCOUNTER → 2021-10-28 11:42 | Outpatient (CLI) | payer MEDICARE, SELFPAY | PROVIDERS: Visit Provider Nurse Practitioner | DX: U07.1 COVID-19 (principal) | CPT/HCPCS: C9803; U0003; U0005 ==

== ENCOUNTER 2023-04-11 22:37 | Observation (INO) | payer MEDICARE, SELFPAY ==
--- NOTE | 2023-04-11 22:45 | ECG_ITS ---
APPROVED REPORT Exam: Resting ECG HR:46 bpm ECG Measurements Heart Rate 46 AXES MN 190 P 77 QRSd 100 QRS 29 QT 440 T 47 QTc 401 Conclusion SINUS BRADYCARDIA BORDERLINE ECG UNCONFIRMED REPORT Electronically signed by : Kervin Zambrano MD 04/12/2023 07:32:00
[2023-04-11 22:47] VITALS: BP 195/83; PULSE 48; RESP 14; TEMP 36.7; O2SAT 99; BMI 23.8
--- NOTE | 2023-04-11 22:53 | XR_ITS ---
PROCEDURE INFORMATION: Exam: XR Chest Exam date and time: 04/11/2023 10:49 PM Age: 72 years old Clinical indication: Dyspnea; Additional info: Htn/dyspnea TECHNIQUE: Imaging protocol: Radiologic exam of the chest. Views: 2 views. COMPARISON: CR XR CHEST 2V 10/24/2021 10:19 PM FINDINGS: Lungs: No consolidation. Pleural spaces: No significant pleural effusion. No pneumothorax. Heart/Mediastinum: No cardiomegaly. Tortuosity of thoracic aorta. Bones/joints: No displaced fracture. Soft tissues: Unremarkable. IMPRESSION: No definite acute cardiopulmonary disease.
--- NOTE | 2023-04-11 22:53 | CT_ITS ---
PROCEDURE INFORMATION: Exam: CT Head Without Contrast Exam date and time: 04/11/2023 11:03 PM Age: 72 years old Clinical indication: Dizziness; Additional info: Dizzyness and migranes TECHNIQUE: Imaging protocol: Computed tomography of the head without contrast. Radiation optimization: All CT scans at this facility use at least one of these dose optimization techniques: automated exposure control; mA and/or kV adjustment per patient size (includes targeted exams where dose is matched to clinical indication); or iterative reconstruction. REPORTING DATA: Count of CT and Cardiac NM exams in prior 12 months: This patient has received 0 known CTs and 0 known cardiac nuclear medicine studies in the 12 months prior to the current study. COMPARISON: CT HEAD/BRAIN WO CON 06/07/2021 12:29 PM FINDINGS: Brain: Moderate atrophy. No intracranial hemorrhage. No mass. Few apparent scattered subtle foci of decreased attenuation within periventricular/subcortical white matter. No definite edema. Cerebral ventricles: No hydrocephalus. Paranasal sinuses: Scattered minimal mucosal thickening. Mastoid air cells: No significant effusion. Orbital cavities: Unremarkable as visualized. Bones/joints: No acute fracture. Soft tissues: Unremarkable. Vasculature: Atherosclerotic disease of intracranial arteries. IMPRESSION: Probable chronic microvascular ischemic changes. If symptoms persist, consider MRI.
--- NOTE | 2023-04-11 22:54 | HMH.EDNEU ---
Discharge Plan Disposition Patient Disposition: Admitted Condition: Fair Chief Complaint: Dizziness Prescriptions Prescriptions: No Action promethazine-DM 120 ML syrup 5 ml PO Q6HP PRN (Reason: Cough) Qty: 240 0RF prednisone 10 MG tablet 10 mg PO BID 3 Days Qty: 6 0RF azithromycin 250 MG tablet 250 mg PO UD DOSE PK Qty: 6 0RF Rx Instructions: Take two (2) tablets today, then one (1) tablet days #2 thru #5 benzonatate 100 MG capsule 100 mg PO TIDP PRN (Reason: Cough) Qty: 30 0RF prednisone 20 MG tablet 20 mg PO BID Qty: 10 0RF levofloxacin 500 MG tablet 500 mg PO DAILY Qty: 7 0RF metformin 500 MG tablet extended release 24 hr 500 mg PO DAILY Qty: 30 2RF Referrals Follow up/Referrals: Vish Claudio MD [Primary Care Provider] - See instructions Clinical Impressions Clinical Impression: Bradycardia Hypertension Qualifiers: Hypertension type: unspecified Qualified Code(s): I10 - Essential (primary) hypertension Instructions Patient Instructions: Dizziness, Nonvertigo Discharge ED Provider: Melanie Sarah HPI General Chief Complaint: Dizziness Stated Complaint: dizzy, headache Time Seen by Provider: 04/11/23 22:52 Mode of Arrival: Ambulatory Source of Information: Patient Limitations: No Limitations History of Present Illness HPI Narrative: Patient is a 72-year-old male who came in with 2 symptoms of headache and dizziness. Patient stated that he had a headache since 1:00 this afternoon. It started with a frontal headache and now is diffuse. Patient stated the headache was 2 out of 10. Patient stated that he has some light sensitivity. Sound is not bothering him. He had no nausea vomiting. He is dizzy when he turns his head. The dizziness is what concerned him so he brought himself in. He does have a history of migraine headache in the past. He had a migraine headache 2 days ago he just went to sleep and went away. No chest pain or shortness of breath. No confusion no slurred speech no focal weakness. Onset (ago): hour(s) Time: 14:00 Severity: mild Relieving factors: none Exacerbating factors: none Context: gradual onset On Anticoagulants: No Associated symptoms: vertigo Treatments Prior to Arrival: none Related Data Previous Rx's Medication Instructions Recorded metformin 500 mg tablet,extended 500 mg PO DAILY ##30 03/23/20 release 24 hr azithromycin 250 mg tablet 250 mg PO UD DOSE PK #6 tabs 07/03/21 benzonatate 100 mg capsule 100 mg PO TIDP PRN Cough #30 caps 07/03/21 prednisone 10 mg tablet 10 mg PO BID 3 days #6 tabs 07/03/21 promethazine-DM 6.25 mg-15 mg/5 mL 5 ml PO Q6HP PRN Cough #240 mL 07/03/21 oral syrup levofloxacin 500 mg tablet 500 mg PO DAILY #7 tabs 10/25/21 prednisone 20 mg tablet 20 mg PO BID #10 tabs 10/25/21 Allergies Allergy/AdvReac Type Severity Reaction Status Date / Time No Known Allergies Allergy Verified 01/24/20 10:59 Stroke Alert/NIH Score LOC Stroke Alert: No Level of Consciousness: Alert LOC Questions: Answers both correctly LOC Commands: Obeys both correctly Facial/Visual Best Gaze: Normal Visual: No visual loss Facial Palsy: Normal Motor Motor Response, Left Arm: No drift/Amputation/Fused Motor Response, Right Arm: No drift/Amputation/Fused Motor Response, Left Leg: No drift/Amputation/Fused Motor Response, Right Leg: No drift/Amputation/Fused Sensory/Language Limb Ataxia: Absent Sensory: Normal Best Language: No aphasia Dysarthria: Normal speech, Intubated or Barrier present NIH Score Stroke Risk Score: 0 PFSH PFS Disclaimer: The information contained in this section may have been updated after the patient was seen, as this information can be updated by other users. Social History Smoking Status: Unknown if ever smoked alcohol intake: never substance use type: other current occupational status: employed Travel in the last 8 weeks: None housing: apartment
--- NOTE | 2023-04-11 22:55 | PC.NURSE ---
call placed to rad for ct
[2023-04-11 23:00] LABS: Basophils # 0.1 K/mm3 (0-0.2); Basophils % 0.7 % (0.1-2.0); Eosinophils # 0.1 K/mm3 (0.0-0.4); Hemoglobin 13.3 g/dL (14.1-18.0); Lymphocytes % 16.4 % (10-50); Mean Corpuscular HGB Conc 31.6 g/dL (31.8-35.4); Mean Corpuscular Hemoglobin 28.7 pg (27.0-31.2); Mean Corpuscular Volume 90.7 fl (80-94); Mean Platelet Volume 8.6 fl (7.4-10.4); Monocytes # 0.4 K/mm3 (0.1-1.0); Monocytes % 6.6 % (1.7-9.3); Neutrophils # 4.6 K/mm3 (1.8-7.8); Neutrophils % 74.2 % (37.0-80.0); Platelet Count 218 K/mm3 (142-424); Red Blood Count 4.63 M/mm3 (4.60-6.20); Red Cell Distribution Width 13.1 % (11.5-17.5); White Blood Count 6.3 K/mm3 (4.8-10.8)
[2023-04-11 23:01] LABS: Chloride 106 mmol/L (98-107); Sodium 142 mmol/L (136-145)
--- NOTE | 2023-04-11 23:01 | PC.NURSE ---
patient gone to RAD at this time.
[2023-04-11 23:03] LABS: Alanine Aminotransferase 22 U/L (12-78); Alkaline Phosphatase 70 U/L (38-126); Aspartate Amino Transferase 25 U/L (17-59); Bilirubin,Total 0.2 mg/dl (0.2-1.3); Blood Urea Nitrogen 14 mg/dl (9-20); Creatinine Clearance Estimated 74 mL/min (50-200); Estimated Glomerular Filt Rate 95 ml/min (>60); GFR (African American) 115 ML/MIN (>60); Potassium 3.5 mmoL/L (3.5-5.1)
[2023-04-11 23:04] LABS: Albumin Level 3.9 g/dl (3.5-5.0); Albumin/Globulin Ratio 1.3 (1.1-1.8); Anion Gap 14.5 mEq/L (5-15); Calcium 9.1 mg/dl (8.4-10.2); Carbon Dioxide 25 mmol/L (22.0-30.0); Globulin 3.1 g/dL (1.3-3.2); Glucose 236 mg/dl (74-100)
--- NOTE | 2023-04-11 23:05 | PC.NURSE ---
pt returned from radiology
[2023-04-11 23:17] LABS: Troponin I < 0.01 ng/ml (0.00-0.034)
[2023-04-12] VITALS (10 sets, daily range): BP systolic 152–198; BP diastolic 77–144; PULSE 39–45; RESP 16–19; TEMP 36.5–36.8; O2SAT 96–99; BMI 23.1
--- NOTE | 2023-04-12 00:28 | PC.NURSE ---
paged at this time.
--- NOTE | 2023-04-12 00:30 | PC.NURSE ---
o/p with at this time.
--- NOTE | 2023-04-12 00:31 | PC.NURSE ---
on phone with savanna holbrook. patient to be admitted and follow up with cardiology.
[2023-04-12 01:06] LABS: Coronavirus 19, PCR Not Detected (NotDetected); Influenza A, PCR Not Detected (NotDetected); Influenza B, PCR Not Detected (NotDetected)
--- NOTE | 2023-04-12 01:16 | EXP.HP ---
History of Present Illness *Admission Date: 04/12/23 *Reason for visit:: headache and dizziness *History of present illness: This is a 72-year-old male with PMHx of hypertension, NIDDM, medically non complaint, who came to ER complaining of headache and dizziness. Patient stated that he had a headache started this afternoon. It started with a frontal headache and diffuse, initially was 2 out of 10. Patient stated that he has some lightheadedness. patient also c/o dizziness and that is what concerned him. He does have a history of migraine headache in the past. He had a migraine headache 2 days ago he just went to sleep and went away. No chest pain or shortness of breath. No confusion no slurred speech no focal weakness. Nothing tried at home made him feels relieve. Initial evaluation included CT of the head and chest x-ray. Case discussed with cardiology and ER doctor. Agreed to admit the patient for further management and work-up. [facility] Disclaimer: The information contained in this section may have been updated after the patient was seen, as this information can be updated by other users. Social History Smoking Status: Unknown if ever smoked alcohol intake: never substance use type: other current occupational status: employed Travel in the last 8 weeks: None housing: apartment Review of Systems Review of Systems Review of systems:: pertinent systems reviewed and negative unless documented below Constitutional Constitutional: Reports headache(s) ENT Ears, Nose, Mouth, and Throat: Reports headache(s) and Reports vertigo *Neurologic Neurologic: Reports headache(s) and Reports vertigo Meds Home Medications and Allergies Home Medications Medication Instructions Recorded Confirmed Type metformin 500 mg tablet,extended 500 mg PO DAILY ##30 12/20/19 01/24/20 Rx release 24 hr azithromycin 250 mg tablet 250 mg PO UD DOSE PK #6 tabs 07/03/21 Rx benzonatate 100 mg capsule 100 mg PO TIDP PRN Cough #30 caps 07/03/21 Rx prednisone 10 mg tablet 10 mg PO BID 3 days #6 tabs 07/03/21 Rx promethazine-DM 6.25 mg-15 mg/5 mL 5 ml PO Q6HP PRN Cough #240 mL 07/03/21 Rx oral syrup levofloxacin 500 mg tablet 500 mg PO DAILY #7 tabs 10/25/21 Rx prednisone 20 mg tablet 20 mg PO BID #10 tabs 10/25/21 Rx New Prescriptions to Start Prescriptions: Allergies Allergy/AdvReac Type Severity Reaction Status Date / Time No Known Allergies Allergy Verified 01/24/20 10:59 Exam Data for Last 24 hours Vital signs and Labs for Last 24 Hours: Temp Pulse Resp BP Pulse Ox O2 Del Method 98.0 F 48 L 14 198/94 H 99 Room Air 04/11/23 22:47 04/11/23 22:47 04/11/23 22:47 04/12/23 00:39 04/11/23 22:47 04/11/23 22:47 Laboratory Results - last 24 hr 04/11/23 22:46: WBC 6.3, RBC 4.63, Hgb 13.3 L, Hct 42.0, MCV 90.7, MCH 28.7, MCHC 31.6 L, RDW 13.1, Plt Count 218, MPV 8.6, Neut % (Auto) 74.2, Lymph % (Auto) 16.4, [place] % (Auto) 6.6, Eos % (Auto) 2.0, Baso % (Auto) 0.7, Neut # (Auto) 4.6, Lymph # (Auto) 1.0, [place] # (Auto) 0.4, Eos # (Auto) 0.1, Baso # (Auto) 0.1, Sodium 142, Potassium 3.5, Chloride 106, Carbon Dioxide 25, Anion Gap 14.5, BUN 14, Creatinine 0.80, Estimated Creat Clear 74, Estimated GFR 95, Est GFR ( Amer) 115, Glucose 236 H, Calcium 9.1, Total Bilirubin 0.2, AST 25, ALT 22, Alkaline Phosphatase 70, Troponin I < 0.01, Total Protein 7.0, Albumin 3.9, Globulin 3.1, Albumin/Globulin Ratio 1.3 I & O for Last 24 hours: Intake & Output 04/09/23 04/10/23 04/11/23 04/12/23 23:59 23:59 23:59 23:59 Weight 77.564 kg Constitutional Constitutional: no acute distress *Routine HEENT Exam Head: Present normocephalic and atraumatic Eye: Present EOMI and PERRL ENT: Present mucous membranes moist *Routine Neck Exam Neck: Present supple, full ROM and trachea midline *Routine Respiratory Exam Respiratory: Present normal respiratory effort, able to speak in complete sentences an
--- NOTE | 2023-04-12 03:23 | PC.NURSE ---
0862 RECEIVED PHONE REPORT FROM CARMINE /ED RN. PATIENT IS A 72 YO MALE. ADMISSION DIAGNOSIS IS H/A, HTN/BRADYCARDIA.
--- NOTE | 2023-04-12 03:39 | PC.NURSE ---
ARRIVED TO THE FLOOR VIA W/C AT 0335. ADMITTED TO ROOM 204.
--- NOTE | 2023-04-12 03:51 | PC.NURSE ---
Pt arrived to the floor via wheelchair @ 2905
[2023-04-12 04:24] LABS: Troponin I < 0.01 ng/ml (0.00-0.034)
--- NOTE | 2023-04-12 05:03 | ECG_ITS ---
APPROVED REPORT Exam: Resting ECG HR:40 bpm ECG Measurements Heart Rate 40 AXES ND 209 P 82 QRSd 93 QRS 16 QT 455 T 30 QTc 387 Conclusion SINUS BRADYCARDIA CRITICAL TEST RESULT UNCONFIRMED REPORT Electronically signed by : Kervin Zambrano MD 04/12/2023 07:31:34
[2023-04-12 05:16] LABS: Chol/HDL Ratio 5.4 (1-3.5); Cholesterol 162 mg/dl (140-200); HDL Cholesterol 30 mg/dl (40-60); Triglycerides 80 mg/dl (30-150); VLDL Cholesterol 16 mg/dL (0-40)
[2023-04-12 05:26] LABS: Direct LDL Cholesterol 106.77 mg/dL (100-129)
[2023-04-12 05:59] LABS: POC Glucose,Bedside 147 (70-110)
[2023-04-12 08:48] LABS: Free T4 (Free Thyroxine) 0.89 ng/dl (0.78-2.19)
[2023-04-12 09:02] LABS: Thyroid Stimulating Hormone 1.06 uIU/mL (0.465-4.68)
[2023-04-12 09:10] LABS: Troponin I < 0.01 ng/ml (0.00-0.034)
--- NOTE | 2023-04-12 11:59 | HMH.PHAINT1 ---
Pharmacy Intervention Comments: MEDICATION RECONCILIATION COMPLETE USING LIST PROVIDED BY [facility] IN [place].
--- NOTE | 2023-04-12 13:27 | PC.NURSE ---
PT AMBULATED IN HALLWAY WHILE ON TELE MONITOR. HR NOTED TO INCREASE FROM MID 40'S BPM TO MID 50'S BPM. HR RETURNS TO MID 40'S WHILE RESTING IN BED. PT TOLERATED AMBULATION WELL.
--- NOTE | 2023-04-12 14:02 | EXP.DC.SUM ---
General Admission date:: 04/12/23 Discharge date: 04/12/23 HPI HPI HPI: This is a 72-year-old male with PMHx of hypertension, NIDDM, medically non complaint, who came to ER complaining of headache and dizziness. He was admitted for hypertensive urgency and sinus bradycardia with first-degree AV block. Hospital Course Hospital Course Hospital Course: 72-year-old with history of hypertension, diabetes, hyperlipidemia admitted for hypertensive urgency in the setting of medication noncompliance. Patient's blood pressure improved with adding amlodipine and Vasotec IV and few doses of hydralazine. During hospitalization he was found to be bradycardic to the 40s but asymptomatic. EKG revealed sinus bradycardia with first-degree AV block. Elise blocking agents were avoided during hospitalization. Review of medication did not reveal any AV elise blocking agents. An echocardiogram was ordered but patient refused to stay back in the hospital and said he will follow-up with his primary as outpatient for further work-up. Patient was ambulated with a good response of heart rate going up to the 60s. His blood pressure at the time of discharge is 165/90 mmHg. At bedside I recommended that patient stay back in the hospital for another 24 hours to monitor his blood pressure and heart rate but patient refused and insisted that he needed to go home and he said he will follow-up with primary on Friday in [facility]. All medications including losartan 25 mg, amlodipine 5 mg daily, metformin extended release 500 mg daily, glipizide 5 mg extended release daily, rosuvastatin and aspirin were sent to his pharmacy for 30-day supply. Exam Data for Last 24 hours Vital signs and Labs for Last 24 Hours: Temp Pulse Resp BP Pulse Ox O2 Del Method 97.8 F 41 L 16 167/92 H 98 Room Air 04/12/23 11:10 04/12/23 13:47 04/12/23 13:47 04/12/23 13:47 04/12/23 13:47 04/12/23 13:47 Laboratory Results - last 24 hr 04/11/23 22:46: WBC 6.3, RBC 4.63, Hgb 13.3 L, Hct 42.0, MCV 90.7, MCH 28.7, MCHC 31.6 L, RDW 13.1, Plt Count 218, MPV 8.6, Neut % (Auto) 74.2, Lymph % (Auto) 16.4, [place] % (Auto) 6.6, Eos % (Auto) 2.0, Baso % (Auto) 0.7, Neut # (Auto) 4.6, Lymph # (Auto) 1.0, [place] # (Auto) 0.4, Eos # (Auto) 0.1, Baso # (Auto) 0.1, Sodium 142, Potassium 3.5, Chloride 106, Carbon Dioxide 25, Anion Gap 14.5, BUN 14, Creatinine 0.80, Estimated Creat Clear 74, Estimated GFR 95, Est GFR ( Amer) 115, Glucose 236 H, Calcium 9.1, Total Bilirubin 0.2, AST 25, ALT 22, Alkaline Phosphatase 70, Troponin I < 0.01, Total Protein 7.0, Albumin 3.9, Globulin 3.1, Albumin/Globulin Ratio 1.3 04/12/23 00:45: SARS-CoV-2 (PCR) Not detected, Influenza A Untype (PCR) Not detected, Influenza Type B (PCR) Not detected 04/12/23 03:55: Hemoglobin A1c 7.0 H, Troponin I < 0.01, Triglycerides 80, Cholesterol 162, LDL Cholesterol Direct 106.77, VLDL Cholesterol 16, HDL Cholesterol 30 L, Cholesterol/HDL Ratio 5.4 H, TSH 1.06, Free T4 0.89 04/12/23 05:47: POC Glucose 147 H 04/12/23 08:38: Troponin I < 0.01 I & O for Last 24 hours: Intake & Output 04/09/23 04/10/23 04/11/23 04/12/23 23:59 23:59 23:59 23:59 Intake Total 360 / 360 Output Total 0 / 0 Balance 360 / 360 Weight 77.564 kg 75.07 kg Constitutional Constitutional: no acute distress and agitated (Frustrated about the fact that he is hospitalized) *Routine HEENT Exam Head: Present normocephalic, atraumatic and other (No scalp tenderness or temporal artery tenderness) Eye: Present EOMI and PERRL ENT: Present mucous membranes moist *Routine Respiratory Exam Respiratory: Present able to speak in complete sentences Comments: No respiratory distress, clear to auscultation *Routine Cardiovascular Exam Cardiovascular: Present Normal S1, Normal S2 and bradycardia *Routine Abdominal Exam Abdominal: Present soft and normoactive bowel sounds *Routine Extremities Exam Extremities: Present pulses intact *Routine Neur
--- NOTE | 2023-04-12 14:18 | P.CONPHA_ITS ---
Pharmacy Intervention Comments: DISCHARGE MEDICATION COUNSELING PROVIDED. DISCUSSED THE FOLLOWING CHANGES: -STOP METFORMIN BID AND START METFORMIN DAILY -START AMLODIPINE 5 MG DAILY (FOR BP, DIZZINESS, LIGHTHEADEDNESS, LOW BP, LOWER LIMB SWELLING POSSIBLE) -START GLIPIZIDE 5 MG DAILY (FOR DIABETES, TAKE WITH FOOD/FIRST MEAL OF DAY, UPS ET STOMACH, LOW BLOOD SUGAR) -START LOSARTAN 25 MG DAILY (FOR BP, DIZZINESS, LIGHTHEADEDNESS, LOW BP, COUGH POSSIBLE) PATIENT VERBALIZED NO QUESTIONS AT THIS TIME.
[2023-04-13 16:38] LABS: POC Glucose,Bedside 130 (70-110)
--- NOTE | 2023-04-15 15:41 | CARE MANAGER ---
Attempted to contact patient x2 related to hospital discharge. Left VM. ELIJAH Almaraz
== END 2023-04-12 14:36 | disposition home or self-care (01) ==
LOC: ER 04-12 00:38 → 2ND 04-12 03:27
PROVIDERS: Internal Medicine; Nurse Practitioner Family; Admitting Provider Internal Medicine; Emergency Provider Emergency Medicine; PCP Social Worker; Visit Provider Internal Medicine
DX: R42 Dizziness and giddiness (principal); I16.0 Hypertensive urgency; R00.1 Bradycardia, unspecified; E11.65 Type 2 diabetes mellitus with hyperglycemia; Z79.84 Long term (current) use of oral hypoglycemic drugs; Z79.899 Other long term (current) drug therapy; I44.0 Atrioventricular block, first degree; Z91.199 Patient's noncompliance with other medical treatment and regimen due to unspecified reason
CPT/HCPCS: G0378; 36415; 70450; 71046; 76770; 80053; 80061; 82962; 83036; 84439; 84443; 84484; 85025; 87636; 93005; 99285; J0131

== ENCOUNTER 2023-10-10 13:54 | Emergency (ER) | payer BC, SELFPAY ==
[2023-10-10 14:10] VITALS: BP 140/86; PULSE 57; RESP 19; TEMP 36.7; O2SAT 98; BMI 32.1
--- NOTE | 2023-10-10 14:13 | EXP.UTC ---
Discharge Plan Disposition Patient Disposition: Home, Self-Care Condition: Good Prescriptions Prescriptions: New azithromycin [Zithromax] 250 mg tablet 250 mg PO UD DOSE PK Qty: 6 0RF Rx Instructions: Take two (2) tablets today, then one (1) tablet days #2 thru #5 benzonatate 200 mg capsule 200 mg PO BID PRN (Reason: cough) Qty: 30 0RF methylprednisolone 4 mg Tablets,Dose Pack 4 mg PO DIRECTED 6 Days Qty: 21 0RF Rx Instructions: Take 1 pack as directed for 6 days guaifenesin [Mucinex] 600 mg tablet extended release 12hr 600 - 1,200 mg PO BIDP PRN (Reason: Congestion) Qty: 30 0RF No Action aspirin 81 mg Tablet 81 mg PO DAILY glipizide 5 mg tablet extended release 24hr 5 mg PO DAILY Qty: 30 0RF losartan 25 mg tablet 25 mg PO DAILY Qty: 30 0RF amlodipine 5 mg Tablet 5 mg PO DAILY Qty: 30 0RF rosuvastatin [Crestor] 10 mg Tablet 10 mg PO DAILY Qty: 30 0RF Rx Instructions: dose unknown metformin 500 mg tablet extended release 24 hr 500 mg PO DAILY Qty: 30 0RF Referrals Follow up/Referrals: Ricardo Fitzgerald PA [Primary Care Provider] - See instructions Activity Restrictions/Add. Instructions Additional Instructions/Restrictions: Drink plenty of fluids. Take tylenol or ibuprofen for pain or fever. Take the medications as directed. Follow up with your regular doctor. GO TO THE ER FOR ANY WORSENING SYMPTOMS Clinical Impressions Clinical Impression: Bronchitis, Pharyngitis Instructions Patient Instructions: Acute Bronchitis, DI for Acute Bronchitis Discharge ED Provider: Varinder Dominguez [facility] General Stated complaint: lost voice, cough Time Seen by Provider: 10/10/23 14:13 History of Present Illness Provider Complaint: She states that for the past 2 days he has had chest congestion, sore throat and sinus congestion. Related Data Home Medications Medication Instructions Recorded Confirmed aspirin 81 mg tablet 81 mg PO DAILY Heart Disease 04/12/23 04/12/23 Previous Rx's Medication Instructions Recorded amlodipine 5 mg tablet 5 mg PO DAILY #30 tabs 04/12/23 glipizide 5 mg tablet, extended 5 mg PO DAILY #30 tabs 04/12/23 release 24 hr losartan 25 mg tablet 25 mg PO DAILY #30 tabs 04/12/23 metformin 500 mg tablet,extended 500 mg PO DAILY #30 tabs 04/12/23 release 24 hr rosuvastatin 10 mg tablet (Crestor) 10 mg PO DAILY cholesterol #30 tabs 04/12/23 azithromycin 250 mg tablet 250 mg PO UD DOSE PK #6 tabs 10/10/23 (Zithromax) benzonatate 200 mg capsule 200 mg PO BID PRN cough #30 caps 10/10/23 guaifenesin 600 mg tablet, 600 - 1,200 mg PO BIDP PRN 10/10/23 extended release 12 hr (Mucinex) Congestion #30 tabs methylprednisolone 4 mg tablets in 4 mg PO DIRECTED 6 days #21 tabs 10/10/23 a dose pack Allergies Allergy/AdvReac Type Severity Reaction Status Date / Time No Known Allergies Allergy Verified 04/12/23 04:27 [facility] Disclaimer: The information contained in this section may have been updated after the patient was seen, as this information can be updated by other users. Medical History (Updated 10/10/23 @ 14:31 by Varinder Dominguez APRN) Bowel obstruction HTN (hypertension) Hyperlipidemia Migraine Surgical History (Updated 04/12/23 @ 04:39 by Junie Vega RN) History of appendectomy Family History (Updated 04/12/23 @ 04:39 by Junie Vega RN) Father Hypertension Social History (Updated 04/12/23 @ 04:40 by Junie Vega RN) Smoking Status: Unknown if ever smoked alcohol intake: never substance use type: other current occupational status: employed Travel in the last 8 weeks: None housing: apartment ROS Obtained: Yes All systems reviewed & no additional complaints except as documented Constitutional Constitutional: Reports poor appetite Eyes Eyes: Reports system reviewed and no additional complaints, except as documented ENT Ears, Nose, Mouth, and Throat: Reports as per HPI Cardiovascular Cardiovascular: Reports system reviewed and no additional complaints, except as documented and Denies chest pain Respiratory Respiratory: Denies shortness of breath, Reports chest congestion, Reports cough, Denies stridor and Denies wheezing Gastrointestinal Gastrointestingal: Reports system reviewed and no additional complaints, except as documented; Denies abdominal pain, diarrhea or vomiting Musculoskeletal Musculoskeletal: Reports system reviewed and no additional complaints, except as documented and Denies arthralgias Integumentary/Breasts Skin/Breast: Reports system reviewed and no additional complaints, except as documented and Denies rash Neurologic Neurologic: Denies paresthesias Allergic/Immunologic Allergic/Immunologic: Denies wheezing Physical Exam General General appearance: alert and in no apparent distress Eye Eye exam: Present normal appearance, PERRL and EOMI ENT ENT exam: Present mucous membranes moist and normal external ear exam Expanded ENT Exam External ear exam: Present normal external inspection TM/Canal exam: Bilateral TM: erythema and bulging Nose exam: Absent sinus tenderness Nasal speculum exam: Bilateral: normal Mouth exam: Present normal external inspection; Absent drooling Teeth exam: Present normal inspection Throat exam: Present tonsillar erythema and tonsillomegaly Neck Neck exam: Present normal inspection, full ROM and trachea midline; Absent tenderness, lymphadenopathy or thyromegaly Chest Chest inspection: Present normal inspection and symmetric chest wall rise; Absent tenderness or rash Respiratory Respiratory exam: Present normal lung sounds bilaterally; Absent respiratory distress, wheezes, stridor or accessory muscle use Cardiovascular Cardiovascular exam: Present regular rate, normal rhythm and normal heart sounds Abdominal Exam Abdominal exam: Present soft; Absent distention, tenderness, guarding, rebound or rigidity Extremities Exam Extremities exam: Present normal inspection, full ROM and normal capillary refill; Absent tenderness or calf tenderness Back Exam Back exam: Present normal inspection and full ROM; Absent tenderness Neurological Exam Neurological exam: Present alert and oriented X3 Psychiatric Psychiatric exam: Present normal affect and normal mood Skin Skin exam: Present warm, dry, intact and normal color Lymphatic Lymphatic Findings: no adenopathy Medical Decision Making Medical Records Medical records reviewed: No I reviewed the patient's medical records. [place] Inquiry Pt receiving controlled substance: No
[2023-10-10 14:35] VITALS: BP 140/86; PULSE 57; RESP 19; TEMP 36.7; O2SAT 98
== END 2023-10-10 14:39 | disposition home or self-care (01) ==
PROVIDERS: Emergency Provider Nurse Practitioner Family; PCP Physician Assistant
DX: J20.9 Acute bronchitis, unspecified (principal); J02.9 Acute pharyngitis, unspecified; R05.9 Cough, unspecified; R09.81 Nasal congestion; R09.89 Other specified symptoms and signs involving the circulatory and respiratory systems; I10 Essential (primary) hypertension; E78.5 Hyperlipidemia, unspecified
CPT/HCPCS: 99212; 99214; G0463

== ENCOUNTER 2023-11-07 15:33 | Emergency (ER) | payer BC, SELFPAY ==
[2023-11-07 15:47] VITALS: BP 157/76; PULSE 59; RESP 16; TEMP 36.6; O2SAT 98; BMI 23.7
--- NOTE | 2023-11-07 15:49 | EXP.UTC ---
Discharge Plan Disposition Patient Disposition: Home, Self-Care Condition: Good Prescriptions Prescriptions: No Action aspirin 81 mg Tablet 81 mg PO DAILY glipizide 5 mg tablet extended release 24hr 5 mg PO DAILY Qty: 30 0RF losartan 25 mg tablet 25 mg PO DAILY Qty: 30 0RF amlodipine 5 mg Tablet 5 mg PO DAILY Qty: 30 0RF rosuvastatin [Crestor] 10 mg Tablet 10 mg PO DAILY Qty: 30 0RF Rx Instructions: dose unknown metformin 500 mg tablet extended release 24 hr 500 mg PO DAILY Qty: 30 0RF guaifenesin [Mucinex] 600 mg tablet extended release 12hr 600 - 1,200 mg PO BIDP PRN (Reason: Congestion) Qty: 30 0RF Referrals Follow up/Referrals: Provider,Referral, MD [Primary Care Provider] - See instructions Clinical Impressions Clinical Impression: Headache Instructions Patient Instructions: DI for Headache Discharge ED [place]ann [place] [facility] [place] General Stated complaint: migraine/headache, nauseous Time Seen by Provider: 11/07/23 16:19 History of Present Illness Provider Complaint: Headache since yesterday. Nausea and vomiting as well. History of migraines. Headache same as other headaches except didn't go away with Tylenol. History HTN, DM but is not taking his medicine. Onset (ago): day(s) (1) Relieving factors: none Exacerbating factors: none Associated symptoms: headaches and nausea/vomiting Treatments prior to arrival: none Related Data Home Medications Medication Instructions Recorded Confirmed aspirin 81 mg tablet 81 mg PO DAILY Heart Disease 04/12/23 04/12/23 Previous Rx's Medication Instructions Recorded amlodipine 5 mg tablet 5 mg PO DAILY #30 tabs 04/12/23 glipizide 5 mg tablet, extended 5 mg PO DAILY #30 tabs 04/12/23 release 24 hr losartan 25 mg tablet 25 mg PO DAILY #30 tabs 04/12/23 metformin 500 mg tablet,extended 500 mg PO DAILY #30 tabs 04/12/23 release 24 hr rosuvastatin 10 mg tablet (Crestor) 10 mg PO DAILY cholesterol #30 tabs 04/12/23 guaifenesin 600 mg tablet, 600 - 1,200 mg PO BIDP PRN 10/10/23 extended release 12 hr (Mucinex) Congestion #30 tabs Allergies Allergy/AdvReac Type Severity Reaction Status Date / Time No Known Allergies Allergy Verified 11/07/23 15:59 [facility] Disclaimer: The information contained in this section may have been updated after the patient was seen, as this information can be updated by other users. Medical History (Updated 11/07/23 @ 16:35 by ALICIA Jeter) Bowel obstruction HTN (hypertension) Hyperlipidemia Migraine Surgical History History of appendectomy Family History Hypertension Father Social History Smoking Status: Unknown if ever smoked alcohol intake: never substance use type: other current occupational status: employed Travel in the last 8 weeks: None housing: apartment ROS Obtained: Yes All systems reviewed & no additional complaints except as documented Constitutional Constitutional: Reports headache(s) ENT Ears, Nose, Mouth, and Throat: Reports headache(s) Gastrointestinal Gastrointestingal: Reports vomiting Neurologic Neurologic: Reports headache(s) Physical Exam General General appearance: alert and in no apparent distress Eye Eye exam: Present normal appearance, PERRL and EOMI ENT ENT exam: Present mucous membranes moist and normal external ear exam Expanded ENT Exam External ear exam: Present normal external inspection Nose exam: Absent sinus tenderness Mouth exam: Present normal external inspection; Absent drooling Teeth exam: Present normal inspection Throat exam: Present tonsillar erythema and tonsillomegaly Neck Neck exam: Present normal inspection, full ROM and trachea midline; Absent tenderness, lymphadenopathy or thyromegaly Chest Chest inspection: Present normal inspection and symmetric chest wall rise; Absent tenderness or rash Respiratory Respiratory exam: Present normal lung sounds bilaterally; Absent respiratory distress, wheezes, stridor or accessory muscle use Cardiovascular Cardiovascular exam: Present regular rate, normal rhythm and normal heart sounds Abdominal Exam Abdominal exam: Present soft; Absent distention, tenderness, guarding, rebound or rigidity Extremities Exam Extremities exam: Present normal inspection, full ROM and normal capillary refill; Absent tenderness or calf tenderness Back Exam Back exam: Present normal inspection and full ROM; Absent tenderness Neurological Exam Neurological exam: Present alert and oriented X3 Psychiatric Psychiatric exam: Present normal affect and normal mood Skin Skin exam: Present warm, dry, intact and normal color Lymphatic Lymphatic Findings: no adenopathy Medical Decision Making Medical Records Medical records reviewed: Yes I reviewed the patient's medical records. Hood Inquiry Pt receiving controlled substance: No
[2023-11-07] MEDS: KETOROLAC 30MG/ML VIAL 30 MG IM (16:11)
[2023-11-07] MEDS: DEXAMETHASONE 4MG/ML 1ML VIAL 4 MG IM (16:11)
[2023-11-07 16:55] VITALS: BP 157/76; PULSE 59; RESP 18; TEMP 36.6; O2SAT 98
== END 2023-11-07 16:55 | disposition home or self-care (01) ==
PROVIDERS: Emergency Provider Physician Assistant
DX: G44.89 Other headache syndrome (principal); R11.2 Nausea with vomiting, unspecified; I10 Essential (primary) hypertension; E11.9 Type 2 diabetes mellitus without complications; E78.5 Hyperlipidemia, unspecified; Z79.84 Long term (current) use of oral hypoglycemic drugs
CPT/HCPCS: 96372; 99212; 99214; G0463

== ENCOUNTER 2024-09-11 17:27 | Emergency (ER) | payer MEDICARE, SELFPAY ==
[2024-09-11 17:43] VITALS: BP 133/64; PULSE 56; RESP 18; TEMP 36.3; O2SAT 97; BMI 23.6
--- NOTE | 2024-09-11 17:52 | ED_ITS ---
Discharge Plan Disposition Patient Disposition: Home, Self-Care Condition: Good Prescriptions Prescriptions: New azithromycin [Zithromax] 250 mg tablet 250 mg PO UD DOSE PK Qty: 6 0RF Rx Instructions: Take two (2) tablets today, then one (1) tablet days #2 thru #5 benzonatate 100 mg capsule 100 mg PO TIDP PRN (Reason: Cough) Qty: 30 0RF prednisone 10 mg tablet 10 mg PO DIRECTED 6 Days Qty: 14 0RF Rx Instructions: Take 4 tablets daily for 2 days, then take 2 tablets daily for 2 days, then take 1 tablet daily for 2 days, then stop. No Action aspirin 81 mg Tablet 81 mg PO DAILY glipizide 5 mg tablet extended release 24hr 5 mg PO DAILY Qty: 30 0RF losartan 25 mg tablet 25 mg PO DAILY Qty: 30 0RF amlodipine 5 mg Tablet 5 mg PO DAILY Qty: 30 0RF rosuvastatin [Crestor] 10 mg Tablet 10 mg PO DAILY Qty: 30 0RF Rx Instructions: dose unknown metformin 500 mg tablet extended release 24 hr 500 mg PO DAILY Qty: 30 0RF guaifenesin [Mucinex] 600 mg tablet extended release 12hr 600 - 1,200 mg PO BIDP PRN (Reason: Congestion) Qty: 30 0RF Referrals Follow up/Referrals: Provider,Referral, MD [Primary Care Provider] - See instructions Activity Restrictions/Add. Instructions Additional Instructions/Restrictions: Drink plenty of fluids. Take tylenol or ibuprofen for pain or fever. Take the medications as directed. Follow up with your regular doctor. GO TO THE ER FOR ANY WORSENING SYMPTOMS Clinical Impressions Clinical Impression: Bronchitis, Sinusitis Instructions Patient Instructions: Sinusitis, DI for Sinusitis Print Language Print Language: Nam[place]ian Discharge ED Provider: Varinder Dominguez [facility] [place] HPI General Stated complaint: head congestion Mode of Arrival: Ambulatory Source of Information: Patient Time Seen by Provider: 09/11/24 17:44 Description of Symptoms (Recalled from Triage Doc. by RN): COUGHING, SNEEZING, DIAL HEENT Symptoms (Recalled from RN notes): No Resp Symptoms (Recalled from RN notes): Yes Skin Symptoms (Recalled from RN notes): No MS Symptoms (Recalled from RN notes): No Functional Status (Recalled from RN notes): WNL Related Data Home Medications ?Medication ?Instructions ?Recorded ?Confirmed aspirin 81 mg tablet 81 mg PO DAILY Heart Disease 04/12/23 04/12/23 Previous Rx's ?Medication ?Instructions ?Recorded amlodipine 5 mg tablet 5 mg PO DAILY #30 tabs 04/12/23 glipizide 5 mg tablet, extended 5 mg PO DAILY #30 tabs 04/12/23 release 24 hr losartan 25 mg tablet 25 mg PO DAILY #30 tabs 04/12/23 metformin 500 mg tablet,extended 500 mg PO DAILY #30 tabs 04/12/23 release 24 hr rosuvastatin 10 mg tablet (Crestor) 10 mg PO DAILY cholesterol #30 tabs 04/12/23 guaifenesin 600 mg tablet, 600 - 1,200 mg (1 - 2 x 600 mg) PO 10/10/23 extended release 12 hr (Mucinex) BIDP PRN Congestion #30 tabs azithromycin 250 mg tablet 250 mg PO UD DOSE PK #6 tabs 09/11/24 (Zithromax) benzonatate 100 mg capsule 100 mg PO TIDP PRN Cough #30 caps 09/11/24 prednisone 10 mg tablet 10 mg PO DIRECTED 6 days #14 09/11/24 tabs Allergies Allergy/AdvReac Type Severity Reaction Status Date / Time No Known Allergies Allergy Verified 11/07/23 15:59 Worker's Comp Is this a Worker's Comp case?: No [facility] Disclaimer: The information contained in this section may have been updated after the patient was seen, as this information can be updated by other users. Medical History (Updated 09/11/24 @ 18:09 by Varinder Dominguez APRN) Bowel obstruction Migraine Hyperlipidemia HTN (hypertension) Surgical History History of appendectomy Family History Father Hypertension Social History Smoking Status: Unknown if ever smoked alcohol intake: never substance use type: other current occupational status: employed Travel in the last 8 weeks: None housing: apartment Have you lived/traveled outside US in past 30 days?: No Contact w/someone who lives/traveled outside US past 30 days?: No Exposure to someone with infectious disease in past 14 days?: No Do you have a fever (greater than 100.4 F or 38 C)?: No Have you tested positive for COVID-19: No Exposed to someone with COVID-19 in past 14 days?: No Do you have a sore throat?: No Do you have a cough?: Yes Do you have any weakness?: No Do you have any diarrhea?: No Are you experiencing any unusual bleeding?: No Do you have any muscle aches/pain?: No Do you have any abdominal pain?: No Are you experiencing loss of taste or smell?: No ROS Obtained: Yes All systems reviewed & no additional complaints except as documented Constitutional Constitutional: Reports poor appetite Eyes Eyes: Reports system reviewed and no additional complaints, except as documented ENT Ears, Nose, Mouth, and Throat: Reports as per HPI Cardiovascular Cardiovascular: Reports system reviewed and no additional complaints, except as documented and Denies chest pain Respiratory Respiratory: Denies shortness of breath, Denies chest congestion, Reports cough, Denies stridor and Denies wheezing Gastrointestinal Gastrointestingal: Reports system reviewed and no additional complaints, except as documented; Denies abdominal pain, diarrhea or vomiting Musculoskeletal Musculoskeletal: Reports system reviewed and no additional complaints, except as documented and Denies arthralgias Integumentary/Breasts Skin/Breast: Reports system reviewed and no additional complaints, except as documented and Denies rash Neurologic Neurologic: Denies paresthesias Allergic/Immunologic Allergic/Immunologic: Denies wheezing Physical Exam General General appearance: alert and in no apparent distress Eye Eye exam: Present normal appearance, PERRL and EOMI ENT ENT exam: Present mucous membranes moist and normal external ear exam Expanded ENT Exam External ear exam: Present normal external inspection TM/Canal exam: Bilateral TM: erythema and bulging Nose exam: Absent sinus tenderness Nasal speculum exam: Bilateral: normal Mouth exam: Present normal external inspection; Absent drooling Teeth exam: Present normal inspection Throat exam: Present tonsillar erythema and tonsillomegaly Neck Neck exam: Present normal inspection, full ROM and trachea midline; Absent tenderness, lymphadenopathy or thyromegaly Chest Chest inspection: Present normal inspection and symmetric chest wall rise; Absent tenderness or rash Respiratory Respiratory exam: Present normal lung sounds bilaterally; Absent respiratory distress, wheezes, stridor or accessory muscle use Cardiovascular Cardiovascular exam: Present regular rate, normal rhythm and normal heart sounds Abdominal Exam Abdominal exam: Present soft; Absent distention, tenderness, guarding, rebound or rigidity Extremities Exam Extremities exam: Present normal inspection, full ROM and normal capillary refill; Absent tenderness or calf tenderness Back Exam Back exam: Present normal inspection and full ROM; Absent tenderness Neurological Exam Neurological exam: Present alert and oriented X3 Psychiatric Psychiatric exam: Present normal affect and normal mood Skin Skin exam: Present warm, dry, intact and normal color Lymphatic Lymphatic Findings: no adenopathy Medical Decision Making Medical Records Medical records reviewed: No I reviewed the patient's medical records. Screening: Per USPSTF and CDC recommendations, given the prevalence of disease in our region, it is our hospital?s policy to screen for HIV and viral Hepatitis for all patients aged 18 and over and those with ongoing risk factors. Hood Inquiry Pt receiving controlled substance: No Vital Signs: 09/11/24 17:43 Temperature 97.3 F L Temperature Source Oral Pulse Rate [Left Radial] 56 L Respiratory Rate 18 Blood Pressure [Left Arm] 133/64 Blood Pressure Mean [Left Arm] 87 02 Sat by Pulse Oximetry 97
[2024-09-11 17:55] LABS: UTC Influenza A Antigen Negative (Negative); UTC Influenza B Antigen Negative (Negative)
[2024-09-11 18:10] VITALS: BP 133/64; PULSE 56; RESP 18; TEMP 36.3
[2024-09-11 18:17] LABS: Coronavirus 19, PCR Not Detected (NotDetected); Influenza A, PCR Not Detected (NotDetected); Influenza B, PCR Not Detected (NotDetected)
== END 2024-09-11 18:16 | disposition home or self-care (01) ==
PROVIDERS: Emergency Provider Nurse Practitioner Family
DX: J32.9 Chronic sinusitis, unspecified (principal); J40 Bronchitis, not specified as acute or chronic; R05.9 Cough, unspecified; R51.9 Headache, unspecified; R09.81 Nasal congestion; R06.7 Sneezing
CPT/HCPCS: 87636; 87804; 99212; G0381

== ENCOUNTER 2024-11-24 10:09 | Emergency (ER) | payer MEDICARE, SELFPAY ==
[2024-11-24 10:10] VITALS: BP 169/80; PULSE 56; RESP 18; TEMP 36.7; O2SAT 100; BMI 20.9
[2024-11-24 10:31] VITALS: BP 178/81; PULSE 47; O2SAT 95
--- NOTE | 2024-11-24 10:33 | ED_ITS ---
Discharge Plan Disposition Patient Disposition: Home, Self-Care Chief Complaint: Upper Respiratory Infection Prescriptions Prescriptions: No Action rosuvastatin [Crestor] 10 mg Tablet 10 mg PO DAILY Qty: 30 0RF Rx Instructions: dose unknown metformin 500 mg tablet extended release 24 hr 500 mg PO DAILY Qty: 30 0RF Referrals Follow up/Referrals: Provider,Referral, [Primary Care Provider] - See instructions Activity Restrictions/Add. Instructions Additional Instructions/Restrictions: Call your family doctor to establish care for this visit to the emergency department and schedule follow-up within 48 hours to ensure improvement. If you have any worsening of your condition or any other concerning signs or symptoms, return to the emergency department or your primary care doctor for further evaluation. Talk to your family doctor about migraine abortive medications Clinical Impressions Clinical Impression: Migraine Print Language Print Language: Arabic Discharge ED Provider: Obinna Bernard General Adult HPI General Chief complaint: Upper Respiratory Infection Stated complaint: Headache cough neck pain Time Seen by Provider: 11/24/24 10:11 Mode of Arrival: Ambulatory Source of Information: Patient Limitations: No Limitations Description of Symptoms (Recalled from ER Triage Doc. by RN): Complaint of headache and cough for a couple days. States he took two aspirin this morning with no relief of his symptoms. History of Present Illness HPI narrative: Please note that above description of symptoms, in this electronic medical record under categorization of recalled from ER triage doctor by RN are reflective of an initial nursing assessment, however, is not reflective of my full history and physical exam that was personally taken and clarified. Consequentially, this preceding description of symptoms, which may include the patient's categorized chief complaint in the EMR, do not reflect my personal clinical impression, and the ultimate description of history of present illness and patient stated complaints should be deferred to this section of the note. Unless stated otherwise or congruent with this section of the note, additional signs, symptoms, or incongruence should be interpreted as inaccurate with my clinical impression. Related Data Previous Rx's ?Medication ?Instructions ?Recorded metformin 500 mg tablet,extended 500 mg PO DAILY #30 tabs 04/12/23 release 24 hr rosuvastatin 10 mg tablet (Crestor) 10 mg PO DAILY cholesterol #30 tabs 04/12/23 Allergies Allergy/AdvReac Type Severity Reaction Status Date / Time No Known Allergies Allergy Verified 11/07/23 15:59 [facility] Disclaimer: The information contained in this section may have been updated after the patient was seen, as this information can be updated by other users. Medical History (Updated 11/24/24 @ 12:29 by Obinna Bernard MD) Bowel obstruction Migraine Hyperlipidemia HTN (hypertension) Surgical History History of appendectomy Family History Father Hypertension Social History Smoking Status: Never smoker alcohol intake: never substance use type: other current occupational status: employed Travel in the last 8 weeks: None housing: apartment Have you lived/traveled outside US in past 30 days?: No Contact w/someone who lives/traveled outside US past 30 days?: No Exposure to someone with infectious disease in past 14 days?: No Do you have a fever (greater than 100.4 F or 38 C)?: No Have you tested positive for COVID-19: No Exposed to someone with COVID-19 in past 14 days?: No Do you have a sore throat?: No Do you have a cough?: Yes Do you have any weakness?: No Do you have any diarrhea?: No Are you experiencing any unusual bleeding?: No Do you have any muscle aches/pain?: Yes Do you have any abdominal pain?: No Are you experiencing loss of taste or smell?: No Other Medical History Have you received the Flu Vaccine for this season: No Have you received the Pneumonia Vaccine: No ROS Obtained: Yes All systems reviewed & no additional complaints except as documented Physical Exam General General appearance: alert Head Head exam: atraumatic and normocephalic Eye Eye exam: Present normal appearance, PERRL and EOMI Neck Neck exam: Present normal inspection, full ROM and trachea midline Respiratory Respiratory exam: Absent respiratory distress, wheezes, stridor, accessory muscle use or prolonged expiratory phase Cardiovascular Cardiovascular exam: Present other (Pulses equal symmetric in upper and lower extremities) Abdominal Exam Abdominal exam: Present soft; Absent distention, tenderness or pulsatile mass Extremities Exam Extremities exam: Absent edema Neurological Exam Neurological exam: Present alert, oriented X3 and CN II-XII intact; Absent motor sensory deficit Skin Skin exam: Present warm and dry; Absent diaphoresis or erythema Medical Decision Making Medical Records Medical records reviewed: Yes I reviewed the patient's medical records. Screening: Per USPSTF and CDC recommendations, given the prevalence of disease in our region, it is our hospital?s policy to screen for HIV and viral Hepatitis for all patients aged 18 and over and those with ongoing risk factors. Hood Inquiry Pt receiving controlled substance: No Hood was queried for this patient: No Vital Signs: 11/24/24 10:10 11/24/24 10:31 Temperature 98.1 F Temperature Source Oral Pulse Rate 47 L Pulse Rate [Radial] 56 L Respiratory Rate 18 Blood Pressure 178/81 H Blood Pressure [Right Arm] 169/80 H Blood Pressure Mean 113 Blood Pressure Mean [Right Arm] 109 Blood Pressure Source [Right Arm] Automatic Cuff Blood Pressure Position [Right Arm] Sitting 02 Sat by Pulse Oximetry 100 95 Oxygen Delivery Method Room Air Orders (Tests/Meds): ED MEDICATIONS Discontinued Medications Generic Name Dose Route Start Last Admin Trade Name Freq PRN Reason Stop Dose Admin Acetaminophen 1,000 mg 11/24/24 10:33 11/24/24 11:45 Acetaminophen 1,000mg/100ml Vial IV 11/24/24 10:34 1,000 mg ONCE ONE Administration Dexamethasone 10 mg 11/24/24 10:33 11/24/24 11:44 Dexamethasone 4mg Tablet PO 11/24/24 10:34 10 mg ONCE ONE Administration Sodium Chloride 500 mls @ 999 mls/hr 11/24/24 10:45 11/24/24 11:44 Sod Chlor 0.9% 1000ml Bag IV 11/24/24 11:15 999 mls/hr .Q31M FELISA Administration Ketorolac Tromethamine 15 mg 11/24/24 10:33 11/24/24 11:43 Ketorolac 30mg/Ml Vial IV 11/24/24 10:34 15 mg ONCE ONE Administration Methocarbamol 1,500 mg 11/24/24 10:36 11/24/24 11:44 Methocarbamol 500mg Tablet PO 11/24/24 10:37 1,500 mg ONCE ONE Administration Prochlorperazine Edisylate 10 mg 11/24/24 10:33 11/24/24 11:43 Prochlorperazine 10mg/2ml Vial IV 11/24/24 10:34 10 mg ONCE ONE Administration Medical Decision Narrative: 74-year-old male history of hypertension, hyperlipidemia, diabetes,, migraine, medical noncompliance presenting with headache. Patient states that this is just like all of his typical headaches, however this time it has been ongoing for a couple of days. Usually he takes ibuprofen and it goes away. This has been going on for 3 days at this point. States that he has muscle tension in his neck that goes from the base of his neck up to the right side of his skull. No midline tenderness or left-sided tenderness. No neurologic deficits. Coming in for further evaluation. History was obtained via conversation with patient. On arrival, patient hemodynamically stable, alert, oriented x4, appropriate, GCS 15, moving all extremities spontaneously, pupils equal and reactive to light. Full physical exam performed and significant for clinically well-appearing male no acute distress. Is not photophobic or phonophobic. Pupils equal and reactive. Tenderness about trapezius muscle on the right going up to the occiput. Full range of motion of neck, no evidence of meningismus. Cardiopulmonary exam within normal limits. Differential includes headache, migraine, metabolic abnormality, endocrinologic abnormality, less likely to be dissection, CVA, ACS, ND, among others. Hematologic labs were considered, but patient having no systemic signs or symptoms and clinically very well-appearing. Nonactionable with normal physical exam other than subjective muscle tension and trapezius on right side, so not deemed necessary. Migraine cocktail administered. Patient was placed in observation beginning at 10:30 AM in order to give meds, and determine need for admission versus home-going. The patient was provided serial exams, headache cocktail while awaiting results. On reevaluation, patient states he has no headache and is feeling great, ready to go. At this time, I feel patient is appropriate for discharge. Total observation time 2 hours. [employer] disclaimer Much of this encounter note is an electronic radio interference expert spoken language to printed text. Electronic radio interference expert of the spoken language may permit errors. Although I have reviewed the note, some errors may still exist. Critical Care Critical Care Time Critical Care Time: No
--- NOTE | 2024-11-24 11:17 | PC.NURSE ---
ROUNDED ON THE PT. THE PT VOICES THAT HE DOES NOT NEED ANYTHING AT THIS TIME. CALL LIGHT IS WITHIN REACH OF THE PT.
[2024-11-24] MEDS: PROCHLORPERAZINE 10MG/2ML VIAL 10 MG IV (11:43)
[2024-11-24] MEDS: KETOROLAC 30MG/ML VIAL 15 MG IV (11:43)
[2024-11-24] MEDS: DEXAMETHASONE 4MG TABLET 10 MG PO (11:44)
[2024-11-24] MEDS: METHOCARBAMOL 500MG TABLET 1500 MG PO (11:44)
[2024-11-24] MEDS: 0.9 % SODIUM CHLORIDE 1000ML 500 ML 999 ML IV (11:44)
[2024-11-24] MEDS: ACETAMINOPHEN 1,000MG/100ML VIAL 1000 MG IV (11:45)
[2024-11-24 12:35] VITALS: BP 158/84; PULSE 47; RESP 20; TEMP 36.8; O2SAT 97
== END 2024-11-24 12:37 | disposition home or self-care (01) ==
PROVIDERS: Emergency Provider Emergency Medicine
DX: G43.909 Migraine, unspecified, not intractable, without status migrainosus (principal)
CPT/HCPCS: 96374; 96375; 99284; J0131; J0780; J1885; J7030; J8540